=== PATIENT | female | born 2000 | race Two or more races ===

== ENCOUNTER → 2020-09-15 14:47 | Outpatient (BNVA) | payer MEDICAID, SELFPAY | PROVIDERS: PCP Nurse Practitioner Family; Visit Provider Internal Medicine | DX: I95.0 Idiopathic hypotension (principal) | CPT/HCPCS: 93005; 99202 ==

== ENCOUNTER 2020-10-07 07:37 | Emergency (ER) | payer MEDICAID, SELFPAY ==
[2020-10-07 07:43] VITALS: BP 108/65; PULSE 76; RESP 12; TEMP 36.6; O2SAT 98; BMI 22.4
[2020-10-07] MEDS: Lidocaine HCl 1 % 20 ML VIAL 10 ML INFILTRATI (08:16)
--- NOTE | 2020-10-07 08:23 | ED_ITS ---
HPI - Wound/Laceration General Chief Complaint: Wound/Laceration Stated Complaint: FINGER CUT WITH SCISSORS Time Seen by Provider: 10/07/20 08:02 Source: patient Mode of arrival: EMS Limitations: no limitations History of Present Illness HPI narrative: 20-year-old female who presents emergency department for evaluation of a laceration to her left index finger. The patient was opening a package with a pair scissors, she slipped and accidentally cut her left index finger. She states that the finger was bleeding extensively. She called an ambulance. The wound was cleaned and dressed in the field patient was t ransported to the emergency department. The patient believes that her tetanus status is up-to-date. She denies any numbness or weakness of the finger. Related Data Home Medications Medication Instructions Recorded Confirmed cholecalciferol (vitamin D3) 25 25 mcg PO DAILY 09/15/20 09/15/20 mcg (1,000 unit) capsule Allergies Allergy/AdvReac Type Severity Reaction Status Date / Time FRUIT Allergy Unknown ANGIOEDEMA Uncoded 09/15/20 14:54 Review of Systems Review of Systems: Yes all other systems are reviewed and are negative PMFSH Past Medical History Surgical History No pertinent past surgical history Family History Family History Father No problems noted. Mother No problems noted. Social History Social History Alcohol intake: never Smoking Status: Never smoker Advance Directives: No Advance Directives Information Provided: Yes Physical Exam Vital Signs: Vital Signs: Last Vital Signs Temp 98 F 10/07/20 07:43 Pulse 76 10/07/20 07:43 Resp 12 10/07/20 07:43 BP 108/65 10/07/20 07:43 Pulse Ox 98 10/07/20 07:43 Body Mass Index 22.4 Const: General: cooperative and in distress Nutritional Appearance: well nourished Orientation/consciousness: oriented to person Limitations: no limitations Neuro: General: oriented to person Extrem: Left upper extremity: hand (1.5 cm laceration to left the radial aspect of the finger, full skin thickn) Details: neurosensory exam normal and other Psych: Appearance: grossly normal Mental Status: mental status grossly normal Speech and movement: Normal speech and movement present Attitude: cooperative Thought process: Normal thought process present Course Course Course Narrative: 20-year-old female who presents emergency department for evaluation of a 1.5 cm full skin thickness laceration to the left index finger along the radial lateral aspect of the finger just above the PIP joint, finger is neurovascularly intact with normal strength and normal light touch sensation. Laceration was repaired with 4.0 nylon sutures x3 sutures. The patient tolerated the procedure well. She was given verbal and printed instructions and discharged home Procedures Laceration Left index finger: Site: hand (Index finger) Side (If applicable): left Size (cm): 1.5 Description: linear and other (Full skin thickness) Depth: simple, single layer Local Anesthetic: lidocaine 1% Amount of anesthesia used (mL): 3 Pre-repair: wound explored Skin layer closed with: nylon Size (cm): 4-0 Number of sutures: 3 Technique: simple, interrupted Discharge Plan Discharge Clinical Impression: Laceration Patient Disposition: Home, Self-Care Instructions: Finger Laceration (ED) Additional Instructions: Apply bacitracin twice a day for 1 week Watch for signs of infection which would include redness, swelling, drainage or pus, red streaks/lines going away from the wound, increased pain or fever. The stitches need to be removed in 7-10 days by your doctor. Call your doctor's office to make sure that your tetanus status is up-to-date, if you have not had a tetanus shot within 10 years then you should get a booster shot. Follow-up with your doctor in 2 days. Please return to the emergency department if your symptoms get worse or if you develop any symptoms that are concerning to you. Prescriptions: No Action cholecalciferol (vitamin D3) 25 mcg (1,000 unit) capsule 25 mcg PO DAILY RF: 0
== END 2020-10-07 08:47 | disposition home or self-care (01) ==
PROVIDERS: Emergency Provider Emergency Medicine Emergency Medical Services; PCP Nurse Practitioner Family
DX: S61.211A Laceration without foreign body of left index finger without damage to nail, initial encounter (principal); M79.642 Pain in left hand; W26.9XXA Contact with unspecified sharp object(s), initial encounter; Y93.9 Activity, unspecified; Y92.009 Unspecified place in unspecified non-institutional (private) residence as the place of occurrence of the external cause; Y99.9 Unspecified external cause status
CPT/HCPCS: 12001; 99283; 99284

== ENCOUNTER 2021-06-30 08:00 | Outpatient (RCR) | payer MEDICAID, SELFPAY | END 2021-07-07 07:55 | disposition home or self-care (01) | LOC: HO.PT 08:00 | PROVIDERS: PCP Internal Medicine; Visit Provider Internal Medicine | DX: M41.9 Scoliosis, unspecified (principal) | CPT/HCPCS: 97110; 97140; 97162; 97530 ==

== ENCOUNTER 2022-01-07 19:44 | Emergency (ER) | payer MEDICAID, SELFPAY ==
--- NOTE | ~2022-01-07 | XR_ITS ---
EXAMINATION: XR CHEST CLINICAL INFORMATION: Syncope. COMPARISON: None available. TECHNIQUE: 2 views of the chest were obtained. FINDINGS: No significant abnormality is noted involving the heart, lungs, mediastinum, bony thorax or soft tissues. XR/XR chest 2V IMPRESSION: Unremarkable examination.
--- NOTE | ~2022-01-07 | CT_ITS ---
EXAMINATION: CT HEAD WITHOUT CONTRAST CLINICAL INFORMATION: Syncope COMPARISON: None TECHNIQUE: Contiguous axial imaging was performed from the skull base to vertex without intravenous administration of contrast. This CT examination was performed using dose optimization techniques as appropriate, variously including the following: *Automated exposure control *Adjustment of mA and/or kV according to patient size (this includes techniques or standardized protocols for targeted exams where dose is matched to indication/reason for exam; i.e. extremities or head) *Use of iterative reconstruction technique DLP: 576 mGy-cm FINDINGS: There is no evidence of acute intracranial hemorrhage or territorial infarction. No abnormal mass effect or midline shift is seen. Heart to white matter differentiation is well preserved. No extra-axial fluid collections are identified. The ventricles are normal in size. There is no abnormal attenuation within the brain parenchyma. The osseous structures and soft tissues are normal. The mastoid air cells and visualized portions of the paranasal sinuses are well aerated. CT/CT head/brain wo con IMPRESSION: No acute intracranial pathology.
[2022-01-07 20:00] VITALS: BP 73/27; PULSE 71; RESP 18; TEMP 36.1; O2SAT 98; BMI 23.6
--- NOTE | 2022-01-07 20:24 | ECG_ITS ---
Test Reason : NEAR SYNCOPE/LOW BP Blood Pressure : / mmHG Vent. Rate : 095 BPM Atrial Rate : 095 BPM P-R Int : 256 ms QRS Dur : 074 ms QT Int : 336 ms P-R-T Axes : -02 -34 -12 degrees QTc Int : 422 ms Sinus rhythm with 1st degree A-V block Left axis deviation Minimal voltage criteria for LVH, may be normal variant ( R in aVL ) Abnormal ECG No previous ECGs available Referred By: Sybil Christie Electronically Signed By:TORO MCCARTHY MD
--- NOTE | 2022-01-07 20:24 | ED.GENADULT ---
HPI - General Adult General Chief complaint: Syncope <RITO Tuttle - Last Filed: 01/07/22 21:03> Stated complaint: low BP, passed out <RITO Tuttle - Last Filed: 01/07/22 21:03> Time Seen by Provider: 01/07/22 20:24 <RITO Tuttle - Last Filed: 01/07/22 21:03> Source: patient <RITO Tuttle - Last Filed: 01/07/22 21:03> Mode of arrival: ambulatory <RITO Tuttle - Last Filed: 01/07/22 21:03> Limitations: no limitations <RITO Tuttle - Last Filed: 01/07/22 21:03> History of Present Illness HPI narrative: Patient is a 21 year old female presenting to the emergency department today with lightheadedness and low blood pressure. Patient states that she has a history of low blood pressure but doesn''t usually feel like she is going to pass out. Patient states she woke up this morning feeling like she had a cold but felt otherwise fine. Patient denies any dizziness, abdominal pain, nausea, vomiting, fever, chills, blurry vision, double vision, loss of vision, chest pain, difficulty breathing, shortness of breath, back pain, night sweats, pain with urination, increased urinary frequency, increased urinary urgency, blood in her urine or stool, recent trauma or falls, bowel incontinence, bladder incontinence, bowel retention, bladder retention, or any other complaints at this time. Patient states that she is not sexually active and could not possible be . <RITO Tuttle - Last Filed: 01/07/22 21:03> Onset (ago): minute(s) <RITO Tuttle - Last Filed: 01/07/22 21:03> Treatments prior to arrival: none <RITO Tuttle Last Filed: 01/07/22 21:03> Related Data Home medications: Home Medications Medication Instructions Recorded Confirmed cholecalciferol (vitamin D3) 25 25 mcg PO DAILY 09/15/20 09/15/20 mcg (1,000 unit) capsule <RITO Tuttle Last Filed: 01/07/22 21:03> Allergies/adverse reactions: Allergies Allergy/AdvReac Type Severity Reaction Status Date / Time FRUIT Allergy Unknown ANGIOEDEMA Uncoded 09/15/20 14:54 <RITO Tuttle - Last Filed: 01/07/22 21:03> Review of Systems Constitutional: Constitutional: Reports no additional constitutional complaints, Denies chills, Denies fever(s) and Denies night sweats <RITO Tuttle - Last Filed: 01/07/22 21:03> Eyes: Eyes: Reports no additional eye complaints, Denies blurry vision, Denies change in vision, Denies diplopia, Denies eye discharge, Denies loss of vision and Denies eye pain <RITO Tuttle - Last Filed: 01/07/22 21:03> ENT: Denies dizziness <RITO Tuttle - Last Filed: 01/07/22 21:03> Cardiovascular: Cardiovascular: Reports no additional cardiovascular complaints, Denies chest pain, Denies lightheadedness, Denies Loss of Consciousness and Denies dyspnea <RITO Tuttle - Last Filed: 01/07/22 21:03> Respiratory: Respiratory: Reports no additional respiratory complaints and Denies dyspnea <RITO Tuttle - Last Filed: 01/07/22 21:03> Gastrointestinal: Gastrointestinal: Reports no additional gastrointestinal complaints, Denies abdominal pain, Denies melena, Denies hematochezia, Denies change in bowel habits and Denies change in stool character <RITO Tuttle - Last Filed: 01/07/22 21:03> Genitourinary: Genitourinary: Denies hematuria, Denies urinary frequency, Denies dysuria, Denies urinary incontinence, Denies urinary hesitancy and Denies urinary urgency <RITO Tuttle - Last Filed: 01/07/22 21:03> Musculoskeletal: Musculoskeletal: Reports no additional musculoskeletal complaints, Denies numbness and Denies tingling <RITO Tuttle - Last Filed: 01/07/22 21:03> Neurologic: Denies dizziness, Denies loss of vision, Denies numbness and Denies tingling <RITO Tuttle - Last Filed: 01/07/22 21:03> Comments: lightheadedness <RITO Tuttle - Last Filed: 01/07/22 21:03> Psychiatric: Psychiatric: Reports no additional psychiatric complaints <RITO Tuttle - Last Filed: 01/07/22 21:03> Endocrine: Endocrine: Reports no additional endocrine complaints <RITO Tuttle - Last Filed: 01/07/22 21:03> Hematologic/Lymphatic: Hematologic/Lymphatic: Reports no additional hematologic/lymphatic complaints <RITO Tuttle - Last Filed: 01/07/22 21:03> Allergic/Immunologic: Allergic/Immunologic: Reports no additional allergic/immunologic complaints <RITO Tuttle - Last Filed: 01/07/22 21:03> [facility] Past Medical History Attestation statement: The following information was validated with the patient. <RITO Tuttle - Last Filed: 01/07/22 21:03> Source: old records reviewed <RITO Tuttle - Last Filed: 01/07/22 21:03> Surgical History: Surgical History No pertinent past surgical history <RITO Tuttle - Last Filed: 01/07/22 21:03> Family History Family History: Family History Father No problems noted. Mother No problems noted. <RITO Tuttle - Last Filed: 01/07/22 21:03> Social History Social History: Social History Alcohol intake: never Advance Directives: No Advance Directives Information Provided: Yes <RITO Tuttle - Last Filed: 01/07/22 21:03> Physical Exam ED Vital Signs: Vital Signs - 24 hr 01/07/22 20:00 01/07/22 21:42 01/07/22 21:43 Temperature 97.0 F 98.1 F Pulse Rate 71 98 96 Respiratory Rate 18 17 Blood Pressure 73/27 L 112/63 107/57 L Pulse Oximetry 98 99 01/07/22 21:44 01/07/22 21:46 Temperature Pulse Rate 102 H 103 H Respiratory Rate Blood Pressure 128/80 119/75 Pulse Oximetry BMI result Body Mass Index 23.6 <RITO Tuttle - Last Filed: 01/07/22 21:03> Const General: cooperative, no acute distress, alert and awake <Sybil Christie PA - Last Filed: 01/07/22 21:03> Nutritional Appearance: well nourished <Sybil Christie PA - Last Filed: 01/07/22 21:03> Orientation/consciousness: patient oriented x3 <Sybil Christie PA - Last Filed: 01/07/22 21:03> Limitations: no limitations <Sybil Christie PA - Last Filed: 01/07/22 21:03> HENMT Head: Yes normal to inspection and Yes atraumatic <Sybil Christie PA - Last Filed: 01/07/22 21:03> Ears: hearing grossly normal bilaterally and external ears normal <Sybil Christie PA - Last Filed: 01/07/22 21:03> General nose exam: Normal external nose present, no nasal discharge noted and no epistaxis <Sybil Christie PA - Last Filed: 01/07/22 21:03> Face and sinus: Yes normal facial exam, No abrasion and No laceration <Sybil Christie PA - Last Filed: 01/07/22 21:03> Mouth: Normal oral and palatal mucosa present, no drooling and no muffled voice <Sybil Christie PA - Last Filed: 01/07/22 21:03> Eyes General: appearance normal, both eyes and all related structures <Sybil Christie PA - Last Filed: 01/07/22 21:03> Periorbital: periorbital findings normal <Sybil Christie PA - Last Filed: 01/07/22 21:03> Eyelids: Yes eyelids normal <Sybil Christie PA - Last Filed: 01/07/22 21:03> Conjunctivae: conjunctivae normal <Sybil Christie PA - Last Filed: 01/07/22 21:03> Pupils: Equal, round and reactive pupils present <Sybil Christie PA - Last Filed: 01/07/22 21:03> EOM: EOMs intact bilaterally <Sybil Christie PA - Last Filed: 01/07/22 21:03> Neck Neck: Yes normal visual inspection, Yes full ROM and Yes no lymphadenopathy <Sybil Christie PA - Last Filed: 01/07/22 21:03> Chest Chest palpation & inspection: normal inspection of the chest <Sybil RITO Christie - Last Filed: 01/07/22 21:03> Resp Effort & Inspection: normal respiratory effort and able to speak in complete sentences <Sybil Bacaambika PA - Last Filed: 01/07/22 21:03> Auscultation: clear to auscultation bilaterally <Sybil Christie PA - Last Filed: 01/07/22 21:03> Cardio Rate: regular rate <Sybiltrinidad Bacaambika PA - Last Filed: 01/07/22 21:03> Rhythm: regular rhythm <Sybil RITO Christie - Last Filed: 01/07/22 21:03> GI Inspection: Yes normal to inspection <Sybil RITO Christie - Last Filed: 01/07/22 21:03> Neuro General: patient oriented x3 and moves all extremities <RITO Tuttle - Last Filed: 01/07/22 21:03> Cranial nerves: Yes Equal, round and reactive pupils present <Sybiltrinidad Bacaambika PA - Last Filed: 01/07/22 21:03> Cognition (Neuro): normal cognition <Sybil RITO Christie - Last Filed: 01/07/22 21:03> Motor exam (neuro): 5/5 motor strength present throughout <Sybiltrinidad Bacaambika PA - Last Filed: 01/07/22 21:03> Sensory Exam: Normal double simultaneous stimulation for sensation <RITO Tuttle - Last Filed: 01/07/22 21:03> Coordination: [id number] test normal <Sybil Christie PA - Last Filed: 01/07/22 21:03> Extrem General: Yes normal to inspection, Yes full ROM and Yes capillary refill normal <RITO Tuttle - Last Filed: 01/07/22 21:03> Psych Appearance: grossly normal <RITO Tuttle - Last Filed: 01/07/22 21:03> Mental Status: mental status grossly normal <RITO Tuttle - Last Filed: 01/07/22 21:03> Affect: normal affect <RITO Tuttle - Last Filed: 01/07/22 21:03> Attitude: cooperative <RITO Tuttle - Last Filed: 01/07/22 21:03> Thought process: Normal thought process present <RITO Tuttle Last Filed: 01/07/22 21:03> Thought content: Normal thought content present <RITO Tuttle Last Filed: 01/07/22 21:03> Insight: Good insight present (Psych) <RITO Tuttle Last Filed: 01/07/22 21:03> Medical Decision Making MDM Narrative Medical decision making narrative: Patient is a 21 year old female presenting to the emergency department today with lightheadedness. Patient's physical exam was unremarkable. Patient's blood work is pending at this time. Patient's urine is pending at this time. Patient's EKG was unremarkable. Patient's chest x-ray and head CT are both pending at this time. Patient's rapid influenza test was positive. Patient received IV fluids while in the department. Patient's disposition is pending imaging and the remaining aspects of her work up. Patient signed out to SHERIDAN Goldman <RITO Tuttle - Last Filed: 01/07/22 21:03> Differential Diagnosis Differential Diagnosis: history of hypotension, syncope, influenza <RITO Tuttle - Last Filed: 01/07/22 21:03> Medical Records Medical records reviewed: Yes I reviewed the patient's medical records. <RITO Tuttle Last Filed: 01/07/22 21:03> Lab Data Lab results reviewed: Yes I reviewed the patient's lab results. <RITO Tuttle - Last Filed: 01/07/22 21:03> Result diagrams: : 01/07/22 20:14 01/07/22 20:14 <RITO Tuttle - Last Filed: 01/07/22 21:03> Labs: Lab Results 01/07/22 01/07/22 01/07/22 Range/Units 20:14 20:14 20:33 WBC 8.5 (4.8-10.8) X10*3/uL RBC 4.33 (4.20-5.50) X10*6/uL Hgb 13.1 (12.0-16.0) g/dl Hct 39.9 (37.0-47.0) % MCV 92.1 (80.0-98.0) fL MCH 30.3 (27.0-33.0) pg MCHC 32.8 (31.0-35.0) g/dl RDW 11.8 (11.0-16.0) % Plt Count 254 (160-400) X10*3/uL MPV 9.1 L (9.4-12.3) fL Immature Gran % (Auto) 0.2 (0.0-0.4) % Neut % (Auto) 92.6 H (45-73) % Lymph % (Auto) 3.5 L (20-40) % [place] % (Auto) 3.4 (2-11) % Eos % (Auto) 0.2 (0-4) % Baso % (Auto) 0.1 (0-2) % Lymph # (Auto) 0.3 L (1.2-4.9) X10*3/uL [place] # (Auto) 0.3 (0.1-1.2) X10*3/uL Eos # (Auto) 0.0 (0.0-0.4) X10*3/uL Baso # (Auto) 0.0 (0.0-0.2) X10*3/uL Abs Immat Gran (auto) 0.02 (0.00-0.03) X10*3/uL Absolute Neuts (auto) 7.8 (2.0-8.3) x10*3/uL Absolute Nucleated RBC 0.000 (0.0-0.012) X10*3/uL Nucleated RBC % (auto) 0.0 (0.0-0.2) /100WBC Smear Tech's Comments VERIFIED D-Dimer High Sensitivty < 150 NG/ML Sodium 137 (135-145) mmol/L Potassium 4.1 (3.3-5.1) mmol/L Chloride 102 (96-108) mmol/L Carbon Dioxide 28 (22-29) mmol/L Anion Gap 11 L (12-20) BUN 9 (9-16) mg/dL Creatinine 0.91 (0.5-1.4) mg/dL Estim Creat Clear Calc 73.1 Estimated GFR > 60 Random Glucose 120 H (60-115) mg/dL Calcium 9.8 (8.4-10.2) mg/dL Magnesium (1.6-2.6) mg/dL Total Bilirubin 0.4 (0.0-1.0) mg/dL AST 20 (5-31) U/L ALT 18 (0-31) U/L Alkaline Phosphatase 72 (39-117) U/L Total Protein 7.9 (6.5-8.0) g/dL Albumin 4.5 (3.5-5.0) g/dL Beta HCG, Quant < 2 mIU/mL Urine Color Urine Appearance Urine pH (5.0-8.0) Ur Specific Walters (1.005-1.025) Urine Protein (NEG-TRACE) MG/DL Urine Glucose (UA) (NEG) MG/DL Urine Ketones (NEG) MG/DL Urine Blood (NEG) Urine Nitrite (NEG) Ur Leukocyte Esterase (NEG) COVID-19 (JOSE) (Negative) COVID-19 Clin Com Influenza Type A (ELLA) (Negative) Influenza Type B (ELLA) (Negative) Influenza A & B Note 01/07/22 01/07/22 01/07/22 Range/Units 20:33 20:33 20:33 WBC (4.8-10.8) X10*3/uL RBC (4.20-5.50) X10*6/uL Hgb (12.0-16.0) g/dl Hct (37.0-47.0) % MCV (80.0-98.0) fL MCH (27.0-33.0) pg MCHC (31.0-35.0) g/dl RDW (11.0-16.0) % Plt Count (160-400) X10*3/uL MPV (9.4-12.3) fL Immature Gran % (Auto) (0.0-0.4) % Neut % (Auto) (45-73) % Lymph % (Auto) (20-40) % [place] % (Auto) (2-11) % Eos % (Auto) (0-4) % Baso % (Auto) (0-2) % Lymph # (Auto) (1.2-4.9) X10*3/uL [place] # (Auto) (0.1-1.2) X10*3/uL Eos # (Auto) (0.0-0.4) X10*3/uL Baso # (Auto) (0.0-0.2) X10*3/uL Abs Immat Gran (auto) (0.00-0.03) X10*3/uL Absolute Neuts (auto) (2.0-8.3) x10*3/uL Absolute Nucleated RBC (0.0-0.012) X10*3/uL Nucleated RBC % (auto) (0.0-0.2) /100WBC Smear Tech's Comments D-Dimer High Sensitivty NG/ML Sodium (135-145) mmol/L Potassium (3.3-5.1) mmol/L Chloride (96-108) mmol/L Carbon Dioxide (22-29) mmol/L Anion Gap (12-20) BUN (9-16) mg/dL Creatinine (0.5-1.4) mg/dL Estim Creat Clear Calc Estimated GFR Random Glucose (60-115) mg/dL Calcium (8.4-10.2) mg/dL Magnesium 1.7 (1.6-2.6) mg/dL Total Bilirubin (0.0-1.0) mg/dL AST (5-31) U/L ALT (0-31) U/L Alkaline Phosphatase (39-117) U/L Total Protein (6.5-8.0) g/dL Albumin (3.5-5.0) g/dL Beta HCG, Quant mIU/mL Urine Color Urine Appearance Urine pH (5.0-8.0) Ur Specific Walters (1.005-1.025) Urine Protein (NEG-TRACE) MG/DL Urine Glucose (UA) (NEG) MG/DL Urine Ketones (NEG) MG/DL Urine Blood (NEG) Urine Nitrite (NEG) Ur Leukocyte Esterase (NEG) COVID-19 (JOSE) Negative (Negative) COVID-19 Clin Com See Note Influenza Type A (ELLA) Positive A (Negative) Influenza Type B (ELLA) Negative (Negative) Influenza A & B Note See Note 01/07/22 Range/Units 22:14 WBC (4.8-10.8) X10*3/uL RBC (4.20-5.50) X10*6/uL Hgb (12.0-16.0) g/dl Hct (37.0-47.0) % MCV (80.0-98.0) fL MCH (27.0-33.0) pg MCHC (31.0-35.0) g/dl RDW (11.0-16.0) % Plt Count (160-400) X10*3/uL MPV (9.4-12.3) fL Immature Gran % (Auto) (0.0-0.4) % Neut % (Auto) (45-73) % Lymph % (Auto) (20-40) % [place] % (Auto) (2-11) % Eos % (Auto) (0-4) % Baso % (Auto) (0-2) % Lymph # (Auto) (1.2-4.9) X10*3/uL [place] # (Auto) (0.1-1.2) X10*3/uL Eos # (Auto) (0.0-0.4) X10*3/uL Baso # (Auto) (0.0-0.2) X10*3/uL Abs Immat Gran (auto) (0.00-0.03) X10*3/uL Absolute Neuts (auto) (2.0-8.3) x10*3/uL Absolute Nucleated RBC (0.0-0.012) X10*3/uL Nucleated RBC % (auto) (0.0-0.2) /100WBC Smear Tech's Comments D-Dimer High Sensitivty NG/ML Sodium (135-145) mmol/L Potassium (3.3-5.1) mmol/L Chloride (96-108) mmol/L Carbon Dioxide (22-29) mmol/L Anion Gap (12-20) BUN (9-16) mg/dL Creatinine (0.5-1.4) mg/dL Estim Creat Clear Calc Estimated GFR Random Glucose (60-115) mg/dL Calcium (8.4-10.2) mg/dL Magnesium (1.6-2.6) mg/dL Total Bilirubin (0.0-1.0) mg/dL AST (5-31) U/L ALT (0-31) U/L Alkaline Phosphatase (39-117) U/L Total Protein (6.5-8.0) g/dL Albumin (3.5-5.0) g/dL Beta HCG, Quant mIU/mL Urine Color YELLOW Urine Appearance CLEAR Urine pH 7.0 (5.0-8.0) Ur Specific [place] 1.020 (1.005-1.025) Urine Protein TRACE (NEG-TRACE) MG/DL Urine Glucose (UA) NEG (NEG) MG/DL Urine Ketones NEG (NEG) MG/DL Urine Blood NEG (NEG) Urine Nitrite NEG (NEG) Ur Leukocyte Esterase NEG (NEG) COVID-19 (JOSE) (Negative) COVID-19 Clin Com Influenza Type A (ELLA) (Negative) Influenza Type B (ELLA) (Negative) Influenza A & B Note <RITO Tuttle - Last Filed: 01/07/22 21:03> ECG Data Attestation: I personally reviewed and interpreted this ECG as follows: <RITO Tuttle - Last Filed: 01/07/22 21:03> Prior ECG tracings: not available for review <RITO Tuttle - Last Filed: 01/07/22 21:03> Interpretation: Vent. Rate: 095 BPM ? ? Atrial Rate: 095 BPM P-R Int: 256 ms? QRS Dur: 074 ms QT Int: 336 ms ? ? ? P-R-T Axes: -02 -34 -12 degrees QTc Int: 422 ms ? Sinus rhythm with 1st degree A-V block Left axis deviation Minimal voltage criteria for LVH, may be normal variant ( R in aVL ) Abnormal ECG No previous ECGs available DD/ 20 <RITO Tuttle - Last Filed: 01/07/22 21:03> Discharge Plan Discharge Clinical Impression: Idiopathic hypotension, Vasovagal syncope, Influenza A <RITO Tuttle - Last Filed: 01/07/22 21:03> Patient Disposition: Still a Patient <RITO Tuttle - Last Filed: 01/07/22 21:03> Instructions: Influenza (DC), Hypotension (ED) <RITO Tuttle Last Filed: 01/07/22 21:03> Prescriptions: No Action cholecalciferol (vitamin D3) 25 mcg (1,000 unit) capsule 25 mcg PO DAILY 0RF <RITO Tuttle - Last Filed: 01/07/22 21:03> Referrals: [facility] [Primary Care Provider] - <RITO Tuttle - Last Filed: 01/07/22 21:03> Stand Alone Forms: Work/School Release <RITO Tuttle - Last Filed: 01/07/22 21:03> Print Language: Macedonian <RITO Tuttle - Last Filed: 01/07/22 21:03>
[2022-01-07 20:30] LABS: Basophils Percent Auto 0.1 % (0-2); Eosinophils Percent Auto 0.2 % (0-4); Hematocrit 39.9 % (37.0-47.0); Hemoglobin 13.1 g/dl (12.0-16.0); Imm Gran Abs Auto 0.02 X10*3/uL (0.00-0.03); Imm Gran Pct Auto 0.2 % (0.0-0.4); Lymphocytes Absolute Auto 0.3 X10*3/uL (1.2-4.9); Lymphocytes Percent Auto 3.5 % (20-40); MANUAL DIFF FLAG SCAN; Mean Corpuscular HGB Conc 32.8 g/dl (31.0-35.0); Mean Corpuscular Hemoglobin 30.3 pg (27.0-33.0); Mean Corpuscular Volume 92.1 fL (80.0-98.0); Mean Platelet Volume 9.1 fL (9.4-12.3); Monocytes Absolute Auto 0.3 X10*3/uL (0.1-1.2); Monocytes Percent Auto 3.4 % (2-11); Neutrophils Absolute Auto 7.8 x10*3/uL (2.0-8.3); Neutrophils Percent Auto 92.6 % (45-73); Platelet Count 254 X10*3/uL (160-400); Red Blood Count 4.33 X10*6/uL (4.20-5.50); Red Cell Distribution Width 11.8 % (11.0-16.0); SCAN SMEAR FLAG 1; White Blood Count 8.5 X10*3/uL (4.8-10.8)
[2022-01-07 20:42] LABS: Alanine Aminotransferase 18 U/L (0-31); Albumin Level 4.5 g/dL (3.5-5.0); Alkaline Phosphatase 72 U/L (39-117); Anion Gap 11 (12-20); Aspartate Amino Transferase 20 U/L (5-31); Bilirubin Total 0.4 mg/dL (0.0-1.0); Blood Urea Nitrogen 9 mg/dL (9-16); Calcium 9.8 mg/dL (8.4-10.2); Carbon Dioxide 28 mmol/L (22-29); Chloride 102 mmol/L (96-108); Creatinine Clr Calc Pharmacy 73.1; Estimated Glomerular Filt Rate > 60; Glucose Random 120 mg/dL (60-115); Potassium 4.1 mmol/L (3.3-5.1); Sodium 137 mmol/L (135-145); Total Protein 7.9 g/dL (6.5-8.0)
[2022-01-07 20:56] LABS: Magnesium 1.7 mg/dL (1.6-2.6)
[2022-01-07 20:58] LABS: COVID-19 Test Negative (Negative); IDNOW Serial# 16C4AD1C; Influenza A Positive (Negative); Influenza B2 Negative (Negative)
--- NOTE | 2022-01-07 20:58 | PC.NURSE ---
EKG COMPLETED AT 2020 WAS REPEATED DUE TO LEAD ERROR
[2022-01-07 21:02] LABS: SLIDE REVIEW VERIFIED
[2022-01-07 21:04] LABS: D Dimer High Sensitivity < 150 NG/ML
[2022-01-07 21:42] VITALS: BP 112/63; PULSE 98; RESP 17; TEMP 36.7; O2SAT 99
[2022-01-07 21:43] VITALS: BP 107/57; PULSE 96
[2022-01-07 21:44] VITALS: BP 128/80; PULSE 102
[2022-01-07 21:44] LABS: HCG Quantitative < 2 mIU/mL
[2022-01-07 21:46] VITALS: BP 119/75; PULSE 103
[2022-01-07 22:30] LABS: Appearance Urine CLEAR; Color Urine YELLOW; Glucose Urine UA NEG (NEG); Leukocyte Esterase Urine NEG (NEG); Nitrite Urine NEG (NEG); Urine Blood NEG (NEG); Urine Ketones NEG (NEG); Urine Protein TRACE MG/DL (NEG-TRACE)
[2022-01-07 22:34] LABS: UPreg QC Valid YES; Urine Pregnancy NEGATIVE (NEGATIVE)
[2022-01-07 23:09] LABS: Bacteria Urine 1+ /LPF; RBC Urine 0 /HPF (0); Squamous Epithelial Cell Urine TRACE /LPF; WBC Urine 0-2 /HPF (0-4)
== END 2022-01-07 23:21 | disposition home or self-care (01) ==
PROVIDERS: Physician Assistant Medical; Emergency Provider Emergency Medicine Emergency Medical Services
DX: J10.1 Influenza due to other identified influenza virus with other respiratory manifestations (principal); I95.0 Idiopathic hypotension; R55 Syncope and collapse; Z20.822 Contact with and (suspected) exposure to COVID-19; Z79.899 Other long term (current) drug therapy
CPT/HCPCS: 36415; 70450; 71046; 80053; 81001; 81025; 83735; 84702; 85025; 85379; 87502; 87635; 93005; 99284

== ENCOUNTER → 2022-05-19 08:10 | Outpatient (BNVA) | payer MEDICAID, SELFPAY | PROVIDERS: PCP Internal Medicine; Visit Provider Nurse Practitioner Family | DX: R10.11 Right upper quadrant pain (principal); K62.5 Hemorrhage of anus and rectum; K21.9 Gastro-esophageal reflux disease without esophagitis; K59.00 Constipation, unspecified; K64.9 Unspecified hemorrhoids | CPT/HCPCS: 99202; 99212 ==

== ENCOUNTER 2022-05-20 09:13 | Outpatient (REF) | payer MEDICAID, SELFPAY ==
[2022-05-20 10:51] LABS: TSH reflex Free T4 2.34 uIU/mL (0.32-4.0)
[2022-05-24 12:47] LABS: Transglutaminase IgA <1.0 U/mL
== END 2022-05-20 09:14 | disposition home or self-care (01) ==
LOC: HO.LAB 09:13
PROVIDERS: PCP Internal Medicine; Visit Provider Nurse Practitioner Family
DX: R10.9 Unspecified abdominal pain (principal); Z12.11 Encounter for screening for malignant neoplasm of colon
CPT/HCPCS: 36415; 84443; 86364

== ENCOUNTER 2022-06-01 09:22 | Outpatient (REF) | payer MEDICAID, SELFPAY ==
--- NOTE | ~2022-06-01 | US_ITS ---
EXAMINATION: US ABDOMEN COMPLETE CLINICAL INFORMATION: Unspecified abdominal pain. COMPARISON: None TECHNIQUE: Real-time imaging of the abdominal viscera. FINDINGS: PANCREAS: Visualized portions of the pancreas are unremarkable. The pancreatic tail is obscured by bowel gas. ABDOMINAL AORTA: Visualized aorta is normal in caliber however portions are obscured by bowel gas. INFERIOR VENA CAVA: Visualized portions are normal. LIVER: Normal. The liver is normal in size. The liver contour is normal. Parenchymal echogenicity is normal. No focal hepatic lesion. There is no intrahepatic biliary duct dilatation seen. GALLBLADDER: Normal. The gallbladder is physiologically distended without evidence of stones, sludge, polyps, wall thickening or pericholecystic fluid. COMMON BILE DUCT: Normal in caliber measuring 0.3 cm in diameter. RIGHT KIDNEY: Right renal pelviectasis without renzo hydronephrosis. No hydronephrosis. No renal calculi or focal parenchymal lesions. The kidney measures 9.5 cm in maximum dimension. LEFT KIDNEY: Left renal pelviectasis without renzo hydronephrosis. No hydronephrosis. No renal calculi or focal parenchymal lesions. The kidney measures 10.1 cm in maximum dimension. SPLEEN: Normal. The spleen measures 9.7 cm in maximum dimension. FREE FLUID: None. US/US abdomen complete IMPRESSION: Bilateral renal pelviectasis without renzo hydronephrosis. Portions of the pancreas and aorta were obscured by bowel gas limiting evaluation.
== END 2022-06-01 09:23 | disposition home or self-care (01) ==
LOC: HO.US 09:22
PROVIDERS: Visit Provider Nurse Practitioner Family
DX: R10.11 Right upper quadrant pain (principal)
CPT/HCPCS: 76700

== ENCOUNTER 2022-06-02 15:39 | Outpatient (REF) | payer MEDICAID, SELFPAY ==
[2022-06-03 09:07] LABS: H Pylori Breath Test Negative (Negative)
== END 2022-06-02 15:40 | disposition home or self-care (01) ==
LOC: HO.LNP 15:39
PROVIDERS: Visit Provider Nurse Practitioner Family
DX: Z11.0 Encounter for screening for intestinal infectious diseases (principal)
CPT/HCPCS: 83013

== ENCOUNTER → 2022-06-21 08:36 | Outpatient (BNVA) | payer MEDICAID, SELFPAY | PROVIDERS: PCP Internal Medicine; Referring Provider Internal Medicine; Visit Provider Nurse Practitioner Family | DX: R10.12 Left upper quadrant pain (principal); K21.9 Gastro-esophageal reflux disease without esophagitis; K62.5 Hemorrhage of anus and rectum | CPT/HCPCS: 99212 ==

== ENCOUNTER 2022-10-18 14:18 | Outpatient (REF) | payer MEDICAID, SELFPAY ==
[2022-10-18 15:46] LABS: Lipase 21 U/L (8-78)
== END 2022-10-18 14:19 | disposition home or self-care (01) ==
LOC: HO.LAB 14:18
PROVIDERS: PCP Internal Medicine; Visit Provider Nurse Practitioner Family
DX: R10.9 Unspecified abdominal pain (principal)
CPT/HCPCS: 36415; 83690

== ENCOUNTER → 2022-10-31 13:08 | Outpatient (BNVA) | payer MEDICAID, SELFPAY | PROVIDERS: PCP Internal Medicine; Visit Provider Nurse Practitioner Family | DX: K21.9 Gastro-esophageal reflux disease without esophagitis (principal); K59.01 Slow transit constipation; R10.84 Generalized abdominal pain | CPT/HCPCS: 99212 ==

== ENCOUNTER 2023-01-24 12:32 | Emergency (ER) | payer MEDICAID, SELFPAY ==
[2023-01-24] VITALS (7 sets, daily range): BP systolic 111–123; BP diastolic 71–91; PULSE 74–96; RESP 15–18; TEMP 36.3–36.7; O2SAT 96–100; BMI 23.2
--- NOTE | ~2023-01-24 | XR_ITS ---
EXAMINATION: XR CHEST CLINICAL INFORMATION: Cough. COMPARISON: None available. TECHNIQUE: 2 views of the chest were obtained. FINDINGS: No significant abnormality is noted involving the heart, lungs, mediastinum, bony thorax or soft tissues. XR/XR chest 2V IMPRESSION: Unremarkable chest examination.
--- NOTE | 2023-01-24 12:46 | ED_ITS ---
HPI - Syncope General Chief Complaint: Syncope <RITO Camargo - Last Filed: 01/24/23 12:59> Stated Complaint: Syncopal episode per EMS <RITO Camargo - Last Filed: 01/24/23 12:59> Time Seen by Provider: 01/24/23 17:47 <RITO Camargo - Last Filed: 01/24/23 12:59> Source: patient, RN notes reviewed and old records reviewed <Jh Lyons - Last Filed: 01/24/23 19:40> Mode of arrival: ambulatory <Jh Lyons - Last Filed: 01/24/23 19:40> Limitations: no limitations <Jh Lyons - Last Filed: 01/24/23 19:40> History of Present Illness HPI narrative: 22-year-old female reports a past medical history significant for hypotension, asthma presents for evaluation of a syncopal episode patient reports that just prior to arrival she was sitting at her desk at work when she tried to stand up she states that she got lightheaded and had cold sweats and then I passed out. This was witnessed by other staff members the patient woke up immediately but reportedly had another syncopal episode shortly thereafter there was no seizure-like activity described the patient reports that she has some shortness of breath associated with asthma but denies any chest pain she states that she had fever and cough 5 days ago over the weekend but that resolved the patient states that she has seen cardiology in the past for her hypotension but has never had an echocardiogram or stress test. <Jh Lyons - Last Filed: 01/24/23 19:40> Related Data Home Medications: Home Medications Medication Instructions Recorded Confirmed cholecalciferol (vitamin D3) 25 25 mcg PO DAILY 09/15/20 09/15/20 mcg (1,000 unit) capsule albuterol sulfate 90 mcg/actuation 2 puff inhalation QID 05/19/22 aerosol inhaler (ProAir HFA) epinephrine 0.3 mg/0.3 mL 0.3 ml IM ONCE PRN anaphylaxis 05/19/22 injection, auto-injector Previous Rx's Medication Instructions Recorded docusate sodium 100 mg capsule 100 mg PO BEDTIME #90 caps 05/19/22 hydrocortisone 2.5 % topical cream 1 appl NC BID-QID PRN hemorrhoids 05/19/22 with perineal applicator #30 grams (Anusol-HC) polyethylene glycol 3350 17 17 g PO DAILY #510 grams 10/31/22 gram/dose oral powder (Miralax) <RITO Camargo - Last Filed: 01/24/23 12:59> Allergies/Adverse Reactions: Allergies Allergy/AdvReac Type Severity Reaction Status Date / Time No Known Drug Allergies Allergy Unknown Unknown Verified 10/31/22 13:32 FRUIT Allergy Unknown ANGIOEDEMA Uncoded 10/31/22 13:32 <RITO Camargo - Last Filed: 01/24/23 12:59> Review of Systems Constitutional: Constitutional: Reports as per HPI, Denies chills, Denies fatigue, Denies fever(s) and Denies headache(s) <Jh Lyons - Last Filed: 01/24/23 19:40> ENT: Denies headache(s) <Jh Lyons - Last Filed: 01/24/23 19:40> Cardiovascular: Cardiovascular: Denies chest pain, Reports syncope and Reports dyspnea <Jh Lyons - Last Filed: 01/24/23 19:40> Respiratory: Respiratory: Denies cough and Reports dyspnea <Jhpierce Connollyy - Last Filed: 01/24/23 19:40> Gastrointestinal: Gastrointestinal: Denies abdominal pain, Denies constipation and Denies vomiting <Jh Lyons - Last Filed: 01/24/23 19:40> Genitourinary: Genitourinary: Denies dysuria <Jh Lyons - Last Filed: 01/24/23 19:40> Neurologic: Reports syncope, Denies headache(s) and Denies focal weakness <Jh Lyons - Last Filed: 01/24/23 19:40> Endocrine: Endocrine: Denies fatigue <Jh Connollyy - Last Filed: 01/24/23 19:40> PMFSH Past Medical History Surgical History: Surgical History No pertinent past surgical history <RITO Camargo - Last Filed: 01/24/23 12:59> Family History Family History: Family History Father No problems noted. Mother No problems noted. <RITO Camargo - Last Filed: 01/24/23 12:59> Social History Social History: Social History Alcohol intake: never Smoked in Last 30 Days: No Advance Directives: No Advance Directives Information Provided: Yes Patient : No <RITO Camargo - Last Filed: 01/24/23 12:59> Physical Exam Vital Signs: Vital Signs: Last Vital Signs Temp 97.4 F 01/24/23 18:02 Pulse 81 01/24/23 19:18 Resp 15 01/24/23 19:18 BP 118/79 01/24/23 19:18 Pulse Ox 98 01/24/23 19:18 O2 Del Method Room Air 01/24/23 19:18 BMI result Body Mass Index 23.2 <RITO Camargo - Last Filed: 01/24/23 12:59> Vital Signs: Last Vital Signs Temp 97.4 F 01/24/23 18:02 Pulse 81 01/24/23 19:18 Resp 15 01/24/23 19:18 BP 118/79 01/24/23 19:18 Pulse Ox 98 01/24/23 19:18 O2 Del Method Room Air 01/24/23 19:18 BMI result Body Mass Index 23.2 <Jh Lyons - Last Filed: 01/24/23 19:40> Const: General: healthy appearing, comfortable, no acute distress, alert and awake <Jh Lyons - Last Filed: 01/24/23 19:40> Nutritional Appearance: well nourished <Jh Lyons - Last Filed: 01/24/23 19:40> Orientation/consciousness: patient oriented x3 <Jh Lyons - Last Filed: 01/24/23 19:40> HEENT: Head: Yes normocephalic and Yes atraumatic <Jh Lyons - Last Filed: 01/24/23 19:40> Eyes: Pupils: Equal, round and reactive pupils present <Jh Lyons - Last Filed: 01/24/23 19:40> EOM: EOMs intact bilaterally < Last Filed: 01/24/23 19:40> Neck: Neck: Yes full ROM < Last Filed: 01/24/23 19:40> Resp: Effort & Inspection: normal respiratory effort, able to speak in complete sentences, no audible wheezes and not labored < Last Filed: 01/24/23 19:40> Auscultation: clear to auscultation bilaterally < Last Filed: 01/24/23 19:40> Cardio: Rate: regular rate < Last Filed: 01/24/23 19:40> Rhythm: regular rhythm < Filed: 01/24/23 19:40> GI: Inspection: No distended < Last Filed: 01/24/23 19:40> Palpation (GI): Soft to palpation, not firm, nontender, no guarding and not rigid < Last Filed: 01/24/23 19:40> Auscultation: normoactive bowel sounds < Last Filed: 01/24/23 19:40> Skin: General skin exam: no rashes or lesions noted and elasticity normal < Last Filed: 01/24/23 19:40> Neuro: General: patient oriented x3 <Jh Walter Last Filed: 01/24/23 19:40> Cranial nerves: Yes Equal, round and reactive pupils present and Yes Bilaterally intact EOM present < Last Filed: 01/24/23 19:40> Cognition (Neuro): normal cognition < Last Filed: 01/24/23 19:40> Course Course Course Narrative: RME - 22 yo female with history of asthma, hx hypotension and syncope in the past presents to the ER for evaluation of syncope and collapse that happened at work this morning. She was at her desk was feeling sweaty and shakey, when she stoof up she syncopized and fell. Brief LOC 5 seconds or less. No head injury. She has been feeling sick with a cough, cold sweats, nasal congestion for the last 5-6 days. COVID negative at home. She reports adequate PO intake while feeling unwell. Plan: labs, COVID test, CXR and EKG, orthostatics <RITO Camargo - Last Filed: 01/24/23 12:59> Medical Decision Making Medical Decision Making [facility] Narrative: 22-year-old female presents for evaluation after a syncopal episode at work. She reports that happened after she stood up, could been orthostatic issue, will check orthostatic vital signs. Patient reports having had fevers and cough last week that is resolved, chest x-ray is clear, no pneumonia. patient's chest x-ray is a sinus rhythm without ectopy. patient does have some diffuse ST elevation that could be early repolarization. there are no reciprocal ST depressions. However will add on Troponin, CPK, ESR, CRP to evaluate for pericarditis. Patient structure was normal, labs were reassuring. Patient reports that she flew to [place] 2 months ago, she is not on control noted D-dimer to help rule out PE <Jh Lyons - Last Filed: 01/24/23 19:40> Differential Diagnosis syncope Arrhythmia ACS Pericarditis Orthostasis Hypertension Viral syndrome <Jh Lyons - Last Filed: 01/24/23 19:40> Lab Data [facility] Lab Attestation statement: I reviewed the patient's lab results. <Jh Lyons - Last Filed: 01/24/23 19:40> Result Diagrams: 01/24/23 13:29 01/24/23 13:29 <RITO Camargo - Last Filed: 01/24/23 12:59> Labs: Lab Results 01/24/23 01/24/23 01/24/23 Range/Units 13:29 13:29 13:29 WBC 7.1 (4.8-10.8) X10*3/uL RBC 4.40 (4.20-5.50) X10*6/uL Hgb 13.3 (12.0-16.0) g/dl Hct 41.2 (37.0-47.0) % MCV 93.6 (80.0-98.0) fL MCH 30.2 (27.0-33.0) pg MCHC 32.3 (31.0-35.0) g/dl RDW 11.7 (11.0-16.0) % Plt Count 296 (160-400) X10*3/uL MPV 8.7 L (9.4-12.3) fL Immature Gran % (Auto) 0.3 (0.0-0.4) % Neut % (Auto) 58.9 (45-73) % Lymph % (Auto) 24.9 (20-40) % Republic % (Auto) 4.9 (2-11) % Eos % (Auto) 10.4 H (0-4) % Baso % (Auto) 0.6 (0-2) % Lymph # (Auto) 1.8 (1.2-4.9) X10*3/uL [place] # (Auto) 0.4 (0.1-1.2) X10*3/uL Eos # (Auto) 0.7 H (0.0-0.4) X10*3/uL Baso # (Auto) 0.0 (0.0-0.2) X10*3/uL Abs Immat Gran (auto) 0.02 (0.00-0.03) X10*3/uL Absolute Neuts (auto) 4.2 (2.0-8.3) x10*3/uL Absolute Nucleated RBC 0.000 (0.0-0.012) X10*3/uL Nucleated RBC % (auto) 0.0 (0.0-0.2) /100WBC ESR (0-20) MM/HR D-Dimer High Sensitivty NG/ML Sodium 139 (135-145) mmol/L Potassium 4.1 (3.3-5.1) mmol/L Chloride 102 (96-108) mmol/L Carbon Dioxide 29 (22-29) mmol/L Anion Gap 12 (12-20) BUN 10 (9-16) mg/dL Creatinine 0.71 (0.5-1.4) mg/dL Estim Creat Clear Calc 97.4 Estimated GFR > 60 POC Glucose (60-115) mg/dL Random Glucose 90 (60-115) mg/dL Calcium 10.3 H (8.4-10.2) mg/dL Magnesium 1.8 (1.6-2.6) mg/dL Total Bilirubin 0.3 (0.0-1.0) mg/dL Direct Bilirubin 0.1 (0.0-0.5) mg/dL AST 23 (5-31) U/L ALT 25 (0-31) U/L Alkaline Phosphatase 71 (39-117) U/L Total Creatine Kinase 89 (26-140) U/L Troponin I High Sens (<3.5-17.0) ng/L C-Reactive Protein 0.38 (< or = 0.50) mg/dL Total Protein 8.1 H (6.5-8.0) g/dL Albumin 4.7 (3.5-5.0) g/dL Urine Color Urine Appearance Urine pH (5.0-9.0) Ur Specific [place] (1.005-1.025) Urine Protein (Neg-Trace) mg/dL Urine Glucose (UA) (Negative) mg/dL Urine Ketones (Negative) mg/dL Urine Blood (Negative) Urine Nitrite (Negative) Ur Leukocyte Esterase (Negative) Urine Test (NEGATIVE) Urine Opiates Screen (Not Detect) Urine Fentanyl Screen (Not Detect) Ur Barbiturates Screen (Not Detect) Ur Phencyclidine Scrn (Not Detect) Ur Amphetamines Screen (Not Detect) U Benzodiazepines Scrn (Not Detect) Urine Cocaine Screen (Not Detect) U Marijuana (THC) Screen (Not Detect) Ethyl Alcohol < 10 mg/dL COVID-19 (JOSE) Negative (Negative) COVID-19 Clin Com See Note 01/24/23 01/24/23 01/24/23 Range/Units 13:29 13:29 13:29 WBC (4.8-10.8) X10*3/uL RBC (4.20-5.50) X10*6/uL Hgb (12.0-16.0) g/dl Hct (37.0-47.0) % MCV (80.0-98.0) fL MCH (27.0-33.0) pg MCHC (31.0-35.0) g/dl RDW (11.0-16.0) % Plt Count (160-400) X10*3/uL MPV (9.4-12.3) fL Immature Gran % (Auto) (0.0-0.4) % Neut % (Auto) (45-73) % Lymph % (Auto) (20-40) % Republic % (Auto) (2-11) % Eos % (Auto) (0-4) % Baso % (Auto) (0-2) % Lymph # (Auto) (1.2-4.9) X10*3/uL [place] # (Auto) (0.1-1.2) X10*3/uL Eos # (Auto) (0.0-0.4) X10*3/uL Baso # (Auto) (0.0-0.2) X10*3/uL Abs Immat Gran (auto) (0.00-0.03) X10*3/uL Absolute Neuts (auto) (2.0-8.3) x10*3/uL Absolute Nucleated RBC (0.0-0.012) X10*3/uL Nucleated RBC % (auto) (0.0-0.2) /100WBC ESR (0-20) MM/HR D-Dimer High Sensitivty NG/ML Sodium (135-145) mmol/L Potassium (3.3-5.1) mmol/L Chloride (96-108) mmol/L Carbon Dioxide (22-29) mmol/L Anion Gap (12-20) BUN (9-16) mg/dL Creatinine (0.5-1.4) mg/dL Estim Creat Clear Calc Estimated GFR POC Glucose (60-115) mg/dL Random Glucose (60-115) mg/dL Calcium (8.4-10.2) mg/dL Magnesium (1.6-2.6) mg/dL Total Bilirubin (0.0-1.0) mg/dL Direct Bilirubin (0.0-0.5) mg/dL AST (5-31) U/L ALT (0-31) U/L Alkaline Phosphatase (39-117) U/L Total Creatine Kinase (26-140) U/L Troponin I High Sens (<3.5-17.0) ng/L C-Reactive Protein (< or = 0.50) mg/dL Total Protein (6.5-8.0) g/dL Albumin (3.5-5.0) g/dL Urine Color Yellow Urine Appearance Clear Urine pH 6.5 (5.0-9.0) Ur Specific [place] 1.010 (1.005-1.025) Urine Protein Negative (Neg-Trace) mg/dL Urine Glucose (UA) Negative (Negative) mg/dL Urine Ketones Negative (Negative) mg/dL Urine Blood Negative (Negative) Urine Nitrite Negative (Negative) Ur Leukocyte Esterase Negative (Negative) Urine Test NEGATIVE (NEGATIVE) Urine Opiates Screen Not Detected (Not Detect) Urine Fentanyl Screen Not Detected (Not Detect) Ur Barbiturates Screen Not Detected (Not Detect) Ur Phencyclidine Scrn Not Detected (Not Detect) Ur Amphetamines Screen Not Detected (Not Detect) U Benzodiazepines Scrn Not Detected (Not Detect) Urine Cocaine Screen Not Detected (Not Detect) U Marijuana (THC) Screen Not Detected (Not Detect) Ethyl Alcohol mg/dL COVID-19 (JOSE) (Negative) COVID-19 Clin Com 01/24/23 01/24/23 01/24/23 Range/Units 13:29 13:29 18:42 WBC (4.8-10.8) X10*3/uL RBC (4.20-5.50) X10*6/uL Hgb (12.0-16.0) g/dl Hct (37.0-47.0) % MCV (80.0-98.0) fL MCH (27.0-33.0) pg MCHC (31.0-35.0) g/dl RDW (11.0-16.0) % Plt Count (160-400) X10*3/uL MPV (9.4-12.3) fL Immature Gran % (Auto) (0.0-0.4) % Neut % (Auto) (45-73) % Lymph % (Auto) (20-40) % Republic % (Auto) (2-11) % Eos % (Auto) (0-4) % Baso % (Auto) (0-2) % Lymph # (Auto) (1.2-4.9) X10*3/uL Republic # (Auto) (0.1-1.2) X10*3/uL Eos # (Auto) (0.0-0.4) X10*3/uL Baso # (Auto) (0.0-0.2) X10*3/uL Abs Immat Gran (auto) (0.00-0.03) X10*3/uL Absolute Neuts (auto) (2.0-8.3) x10*3/uL Absolute Nucleated RBC (0.0-0.012) X10*3/uL Nucleated RBC % (auto) (0.0-0.2) /100WBC ESR 27 H (0-20) MM/HR D-Dimer High Sensitivty NG/ML Sodium (135-145) mmol/L Potassium (3.3-5.1) mmol/L Chloride (96-108) mmol/L Carbon Dioxide (22-29) mmol/L Anion Gap (12-20) BUN (9-16) mg/dL Creatinine (0.5-1.4) mg/dL Estim Creat Clear Calc Estimated GFR POC Glucose (60-115) mg/dL Random Glucose (60-115) mg/dL Calcium (8.4-10.2) mg/dL Magnesium (1.6-2.6) mg/dL Total Bilirubin (0.0-1.0) mg/dL Direct Bilirubin (0.0-0.5) mg/dL AST (5-31) U/L ALT (0-31) U/L Alkaline Phosphatase (39-117) U/L Total Creatine Kinase Cancelled (26-140) U/L Troponin I High Sens < 2.7 (<3.5-17.0) ng/L C-Reactive Protein (< or = 0.50) mg/dL Total Protein (6.5-8.0) g/dL Albumin (3.5-5.0) g/dL Urine Color Urine Appearance Urine pH (5.0-9.0) Ur Specific [place] (1.005-1.025) Urine Protein (Neg-Trace) mg/dL Urine Glucose (UA) (Negative) mg/dL Urine Ketones (Negative) mg/dL Urine Blood (Negative) Urine Nitrite (Negative) Ur Leukocyte Esterase (Negative) Urine Test (NEGATIVE) Urine Opiates Screen (Not Detect) Urine Fentanyl Screen (Not Detect) Ur Barbiturates Screen (Not Detect) Ur Phencyclidine Scrn (Not Detect) Ur Amphetamines Screen (Not Detect) U Benzodiazepines Scrn (Not Detect) Urine Cocaine Screen (Not Detect) U Marijuana (THC) Screen (Not Detect) Ethyl Alcohol mg/dL COVID-19 (JOSE) (Negative) COVID-19 Clin Com 01/24/23 01/24/23 Range/Units 18:42 19:21 WBC (4.8-10.8) X10*3/uL RBC (4.20-5.50) X10*6/uL Hgb (12.0-16.0) g/dl Hct (37.0-47.0) % MCV (80.0-98.0) fL MCH (27.0-33.0) pg MCHC (31.0-35.0) g/dl RDW (11.0-16.0) % Plt Count (160-400) X10*3/uL MPV (9.4-12.3) fL Immature Gran % (Auto) (0.0-0.4) % Neut % (Auto) (45-73) % Lymph % (Auto) (20-40) % Republic % (Auto) (2-11) % Eos % (Auto) (0-4) % Baso % (Auto) (0-2) % Lymph # (Auto) (1.2-4.9) X10*3/uL Republic # (Auto) (0.1-1.2) X10*3/uL Eos # (Auto) (0.0-0.4) X10*3/uL Baso # (Auto) (0.0-0.2) X10*3/uL Abs Immat Gran (auto) (0.00-0.03) X10*3/uL Absolute Neuts (auto) (2.0-8.3) x10*3/uL Absolute Nucleated RBC (0.0-0.012) X10*3/uL Nucleated RBC % (auto) (0.0-0.2) /100WBC ESR (0-20) MM/HR D-Dimer High Sensitivty < 150 NG/ML Sodium (135-145) mmol/L Potassium (3.3-5.1) mmol/L Chloride (96-108) mmol/L Carbon Dioxide (22-29) mmol/L Anion Gap (12-20) BUN (9-16) mg/dL Creatinine (0.5-1.4) mg/dL Estim Creat Clear Calc Estimated GFR POC Glucose 84 (60-115) mg/dL Random Glucose (60-115) mg/dL Calcium (8.4-10.2) mg/dL Magnesium (1.6-2.6) mg/dL Total Bilirubin (0.0-1.0) mg/dL Direct Bilirubin (0.0-0.5) mg/dL AST (5-31) U/L ALT (0-31) U/L Alkaline Phosphatase (39-117) U/L Total Creatine Kinase (26-140) U/L Troponin I High Sens (<3.5-17.0) ng/L C-Reactive Protein (< or = 0.50) mg/dL Total Protein (6.5-8.0) g/dL Albumin (3.5-5.0) g/dL Urine Color Urine Appearance Urine pH (5.0-9.0) Ur Specific [place] (1.005-1.025) Urine Protein (Neg-Trace) mg/dL Urine Glucose (UA) (Negative) mg/dL Urine Ketones (Negative) mg/dL Urine Blood (Negative) Urine Nitrite (Negative) Ur Leukocyte Esterase (Negative) Urine Test (NEGATIVE) Urine Opiates Screen (Not Detect) Urine Fentanyl Screen (Not Detect) Ur Barbiturates Screen (Not Detect) Ur Phencyclidine Scrn (Not Detect) Ur Amphetamines Screen (Not Detect) U Benzodiazepines Scrn (Not Detect) Urine Cocaine Screen (Not Detect) U Marijuana (THC) Screen (Not Detect) Ethyl Alcohol mg/dL COVID-19 (JOSE) (Negative) COVID-19 Clin Com <RITO Camargo - Last Filed: 01/24/23 12:59> Lab Results 01/24/23 01/24/23 01/24/23 Range/Units 13:29 13:29 13:29 WBC 7.1 (4.8-10.8) X10*3/uL RBC 4.40 (4.20-5.50) X10*6/uL Hgb 13.3 (12.0-16.0) g/dl Hct 41.2 (37.0-47.0) % MCV 93.6 (80.0-98.0) fL MCH 30.2 (27.0-33.0) pg MCHC 32.3 (31.0-35.0) g/dl RDW 11.7 (11.0-16.0) % Plt Count 296 (160-400) X10*3/uL MPV 8.7 L (9.4-12.3) fL Immature Gran % (Auto) 0.3 (0.0-0.4) % Neut % (Auto) 58.9 (45-73) % Lymph % (Auto) 24.9 (20-40) % Republic % (Auto) 4.9 (2-11) % Eos % (Auto) 10.4 H (0-4) % Baso % (Auto) 0.6 (0-2) % Lymph # (Auto) 1.8 (1.2-4.9) X10*3/uL Republic # (Auto) 0.4 (0.1-1.2) X10*3/uL Eos # (Auto) 0.7 H (0.0-0.4) X10*3/uL Baso # (Auto) 0.0 (0.0-0.2) X10*3/uL Abs Immat Gran (auto) 0.02 (0.00-0.03) X10*3/uL Absolute Neuts (auto) 4.2 (2.0-8.3) x10*3/uL Absolute Nucleated RBC 0.000 (0.0-0.012) X10*3/uL Nucleated RBC % (auto) 0.0 (0.0-0.2) /100WBC ESR (0-20) MM/HR D-Dimer High Sensitivty NG/ML Sodium 139 (135-145) mmol/L Potassium 4.1 (3.3-5.1) mmol/L Chloride 102 (96-108) mmol/L Carbon Dioxide 29 (22-29) mmol/L Anion Gap 12 (12-20) BUN 10 (9-16) mg/dL Creatinine 0.71 (0.5-1.4) mg/dL Estim Creat Clear Calc 97.4 Estimated GFR > 60 POC Glucose (60-115) mg/dL Random Glucose 90 (60-115) mg/dL Calcium 10.3 H (8.4-10.2) mg/dL Magnesium 1.8 (1.6-2.6) mg/dL Total Bilirubin 0.3 (0.0-1.0) mg/dL Direct Bilirubin 0.1 (0.0-0.5) mg/dL AST 23 (5-31) U/L ALT 25 (0-31) U/L Alkaline Phosphatase 71 (39-117) U/L Total Creatine Kinase 89 (26-140) U/L Troponin I High Sens (<3.5-17.0) ng/L C-Reactive Protein 0.38 (< or = 0.50) mg/dL Total Protein 8.1 H (6.5-8.0) g/dL Albumin 4.7 (3.5-5.0) g/dL Urine Color Urine Appearance Urine pH (5.0-9.0) Ur Specific [place] (1.005-1.025) Urine Protein (Neg-Trace) mg/dL Urine Glucose (UA) (Negative) mg/dL Urine Ketones (Negative) mg/dL Urine Blood (Negative) Urine Nitrite (Negative) Ur Leukocyte Esterase (Negative) Urine Test (NEGATIVE) Urine Opiates Screen (Not Detect) Urine Fentanyl Screen (Not Detect) Ur Barbiturates Screen (Not Detect) Ur Phencyclidine Scrn (Not Detect) Ur Amphetamines Screen (Not Detect) U Benzodiazepines Scrn (Not Detect) Urine Cocaine Screen (Not Detect) U Marijuana (THC) Screen (Not Detect) Ethyl Alcohol < 10 mg/dL COVID-19 (JOSE) Negative (Negative) COVID-19 Clin Com See Note 01/24/23 01/24/23 01/24/23 Range/Units 13:29 13:29 13:29 WBC (4.8-10.8) X10*3/uL RBC (4.20-5.50) X10*6/uL Hgb (12.0-16.0) g/dl Hct (37.0-47.0) % MCV (80.0-98.0) fL MCH (27.0-33.0) pg MCHC (31.0-35.0) g/dl RDW (11.0-16.0) % Plt Count (160-400) X10*3/uL MPV (9.4-12.3) fL Immature Gran % (Auto) (0.0-0.4) % Neut % (Auto) (45-73) % Lymph % (Auto) (20-40) % [place] % (Auto) (2-11) % Eos % (Auto) (0-4) % Baso % (Auto) (0-2) % Lymph # (Auto) (1.2-4.9) X10*3/uL [place] # (Auto) (0.1-1.2) X10*3/uL Eos # (Auto) (0.0-0.4) X10*3/uL Baso # (Auto) (0.0-0.2) X10*3/uL Abs Immat Gran (auto) (0.00-0.03) X10*3/uL Absolute Neuts (auto) (2.0-8.3) x10*3/uL Absolute Nucleated RBC (0.0-0.012) X10*3/uL Nucleated RBC % (auto) (0.0-0.2) /100WBC ESR (0-20) MM/HR D-Dimer High Sensitivty NG/ML Sodium (135-145) mmol/L Potassium (3.3-5.1) mmol/L Chloride (96-108) mmol/L Carbon Dioxide (22-29) mmol/L Anion Gap (12-20) BUN (9-16) mg/dL Creatinine (0.5-1.4) mg/dL Estim Creat Clear Calc Estimated GFR POC Glucose (60-115) mg/dL Random Glucose (60-115) mg/dL Calcium (8.4-10.2) mg/dL Magnesium (1.6-2.6) mg/dL Total Bilirubin (0.0-1.0) mg/dL Direct Bilirubin (0.0-0.5) mg/dL AST (5-31) U/L ALT (0-31) U/L Alkaline Phosphatase (39-117) U/L Total Creatine Kinase (26-140) U/L Troponin I High Sens (<3.5-17.0) ng/L C-Reactive Protein (< or = 0.50) mg/dL Total Protein (6.5-8.0) g/dL Albumin (3.5-5.0) g/dL Urine Color Yellow Urine Appearance Clear Urine pH 6.5 (5.0-9.0) Ur Specific [place] 1.010 (1.005-1.025) Urine Protein Negative (Neg-Trace) mg/dL Urine Glucose (UA) Negative (Negative) mg/dL Urine Ketones Negative (Negative) mg/dL Urine Blood Negative (Negative) Urine Nitrite Negative (Negative) Ur Leukocyte Esterase Negative (Negative) Urine Test NEGATIVE (NEGATIVE) Urine Opiates Screen Not Detected (Not Detect) Urine Fentanyl Screen Not Detected (Not Detect) Ur Barbiturates Screen Not Detected (Not Detect) Ur Phencyclidine Scrn Not Detected (Not Detect) Ur Amphetamines Screen Not Detected (Not Detect) U Benzodiazepines Scrn Not Detected (Not Detect) Urine Cocaine Screen Not Detected (Not Detect) U Marijuana (THC) Screen Not Detected (Not Detect) Ethyl Alcohol mg/dL COVID-19 (JOSE) (Negative) COVID-19 Clin Com 01/24/23 01/24/23 01/24/23 Range/Units 13:29 13:29 18:42 WBC (4.8-10.8) X10*3/uL RBC (4.20-5.50) X10*6/uL Hgb (12.0-16.0) g/dl Hct (37.0-47.0) % MCV (80.0-98.0) fL MCH (27.0-33.0) pg MCHC (31.0-35.0) g/dl RDW (11.0-16.0) % Plt Count (160-400) X10*3/uL MPV (9.4-12.3) fL Immature Gran % (Auto) (0.0-0.4) % Neut % (Auto) (45-73) % Lymph % (Auto) (20-40) % [place] % (Auto) (2-11) % Eos % (Auto) (0-4) % Baso % (Auto) (0-2) % Lymph # (Auto) (1.2-4.9) X10*3/uL [place] # (Auto) (0.1-1.2) X10*3/uL Eos # (Auto) (0.0-0.4) X10*3/uL Baso # (Auto) (0.0-0.2) X10*3/uL Abs Immat Gran (auto) (0.00-0.03) X10*3/uL Absolute Neuts (auto) (2.0-8.3) x10*3/uL Absolute Nucleated RBC (0.0-0.012) X10*3/uL Nucleated RBC % (auto) (0.0-0.2) /100WBC ESR 27 H (0-20) MM/HR D-Dimer High Sensitivty NG/ML Sodium (135-145) mmol/L Potassium (3.3-5.1) mmol/L Chloride (96-108) mmol/L Carbon Dioxide (22-29) mmol/L Anion Gap (12-20) BUN (9-16) mg/dL Creatinine (0.5-1.4) mg/dL Estim Creat Clear Calc Estimated GFR POC Glucose (60-115) mg/dL Random Glucose (60-115) mg/dL Calcium (8.4-10.2) mg/dL Magnesium (1.6-2.6) mg/dL Total Bilirubin (0.0-1.0) mg/dL Direct Bilirubin (0.0-0.5) mg/dL AST (5-31) U/L ALT (0-31) U/L Alkaline Phosphatase (39-117) U/L Total Creatine Kinase Cancelled (26-140) U/L Troponin I High Sens < 2.7 (<3.5-17.0) ng/L C-Reactive Protein (< or = 0.50) mg/dL Total Protein (6.5-8.0) g/dL Albumin (3.5-5.0) g/dL Urine Color Urine Appearance Urine pH (5.0-9.0) Ur Specific [place] (1.005-1.025) Urine Protein (Neg-Trace) mg/dL Urine Glucose (UA) (Negative) mg/dL Urine Ketones (Negative) mg/dL Urine Blood (Negative) Urine Nitrite (Negative) Ur Leukocyte Esterase (Negative) Urine Test (NEGATIVE) Urine Opiates Screen (Not Detect) Urine Fentanyl Screen (Not Detect) Ur Barbiturates Screen (Not Detect) Ur Phencyclidine Scrn (Not Detect) Ur Amphetamines Screen (Not Detect) U Benzodiazepines Scrn (Not Detect) Urine Cocaine Screen (Not Detect) U Marijuana (THC) Screen (Not Detect) Ethyl Alcohol mg/dL COVID-19 (JOSE) (Negative) COVID-19 Clin Com 01/24/23 01/24/23 Range/Units 18:42 19:21 WBC (4.8-10.8) X10*3/uL RBC (4.20-5.50) X10*6/uL Hgb (12.0-16.0) g/dl Hct (37.0-47.0) % MCV (80.0-98.0) fL MCH (27.0-33.0) pg MCHC (31.0-35.0) g/dl RDW (11.0-16.0) % Plt Count (160-400) X10*3/uL MPV (9.4-12.3) fL Immature Gran % (Auto) (0.0-0.4) % Neut % (Auto) (45-73) % Lymph % (Auto) (20-40) % [place] % (Auto) (2-11) % Eos % (Auto) (0-4) % Baso % (Auto) (0-2) % Lymph # (Auto) (1.2-4.9) X10*3/uL [place] # (Auto) (0.1-1.2) X10*3/uL Eos # (Auto) (0.0-0.4) X10*3/uL Baso # (Auto) (0.0-0.2) X10*3/uL Abs Immat Gran (auto) (0.00-0.03) X10*3/uL Absolute Neuts (auto) (2.0-8.3) x10*3/uL Absolute Nucleated RBC (0.0-0.012) X10*3/uL Nucleated RBC % (auto) (0.0-0.2) /100WBC ESR (0-20) MM/HR D-Dimer High Sensitivty < 150 NG/ML Sodium (135-145) mmol/L Potassium (3.3-5.1) mmol/L Chloride (96-108) mmol/L Carbon Dioxide (22-29) mmol/L Anion Gap (12-20) BUN (9-16) mg/dL Creatinine (0.5-1.4) mg/dL Estim Creat Clear Calc Estimated GFR POC Glucose 84 (60-115) mg/dL Random Glucose (60-115) mg/dL Calcium (8.4-10.2) mg/dL Magnesium (1.6-2.6) mg/dL Total Bilirubin (0.0-1.0) mg/dL Direct Bilirubin (0.0-0.5) mg/dL AST (5-31) U/L ALT (0-31) U/L Alkaline Phosphatase (39-117) U/L Total Creatine Kinase (26-140) U/L Troponin I High Sens (<3.5-17.0) ng/L C-Reactive Protein (< or = 0.50) mg/dL Total Protein (6.5-8.0) g/dL Albumin (3.5-5.0) g/dL Urine Color Urine Appearance Urine pH (5.0-9.0) Ur Specific [place] (1.005-1.025) Urine Protein (Neg-Trace) mg/dL Urine Glucose (UA) (Negative) mg/dL Urine Ketones (Negative) mg/dL Urine Blood (Negative) Urine Nitrite (Negative) Ur Leukocyte Esterase (Negative) Urine Test (NEGATIVE) Urine Opiates Screen (Not Detect) Urine Fentanyl Screen (Not Detect) Ur Barbiturates Screen (Not Detect) Ur Phencyclidine Scrn (Not Detect) Ur Amphetamines Screen (Not Detect) U Benzodiazepines Scrn (Not Detect) Urine Cocaine Screen (Not Detect) U Marijuana (THC) Screen (Not Detect) Ethyl Alcohol mg/dL COVID-19 (JOSE) (Negative) COVID-19 Clin Com <Jh Lyons - Last Filed: 01/24/23 19:40> Independent Interpretation I performed an independent interpretation of an: EKG ( sinus rhythm with a rate of 70 beats per minute. No ectopy.) and Plain X-Ray ( clear chest x-ray) <Jh Lyons - Last Filed: 01/24/23 19:40> Discharge Plan Discharge Clinical Impression: Syncope <RITO Camargo - Last Filed: 01/24/23 12:59> Patient Disposition: Home, Self-Care <RITO Camargo - Last Filed: 01/24/23 12:59> Instructions: Syncope (ED) <RITO Camargo - Last Filed: 01/24/23 12:59> Additional Instructions: your workup in the emergency depart today was reassuring. This includes your blood work, EKG, chest x-ray. I recommend that you follow-up with your [facility] for your continued syncopal episodes call tomorrow to schedule an appointment <RITO Camargo - Last Filed: 01/24/23 12:59> Prescriptions: No Action cholecalciferol (vitamin D3) 25 mcg (1,000 unit) capsule 25 mcg PO DAILY albuterol sulfate [ProAir HFA] 90 mcg/actuation HFA aerosol inhaler 2 puff inhalation QID epinephrine 0.3 mg/0.3 mL auto-injector 0.3 ml IM ONCE PRN (Reason: anaphylaxis) docusate sodium 100 mg capsule 100 mg PO BEDTIME Qty: 90 3RF hydrocortisone [Anusol-HC] 2.5 % cream with perineal applicator 1 appl [place] BID-QID PRN (Reason: hemorrhoids) Qty: 30 3RF Rx Instructions: use as directed polyethylene glycol 3350 [Miralax] 17 gram/dose powder 17 g PO DAILY Qty: 510 2RF <RITO Camagro - Last Filed: 01/24/23 12:59>
--- NOTE | 2023-01-24 12:48 | ECG_ITS ---
Test Reason : syncope Blood Pressure : / mmHG Vent. Rate : 070 BPM Atrial Rate : 070 BPM P-R Int : 194 ms QRS Dur : 084 ms QT Int : 366 ms P-R-T Axes : 053 089 060 degrees QTc Int : 395 ms Normal sinus rhythm Normal ECG When compared with ECG of 07-JAN-2022 20:21, [place] interval has decreased QRS axis Shifted right ST elevation now present in Inferior leads ST no longer elevated in Lateral leads T wave inversion no longer evident in Inferior leads Referred By: Tracy Baez Electronically Signed By:KYE SNYDER
[2023-01-24 13:35] LABS: MANUAL DIFF FLAG NO
[2023-01-24 13:38] LABS: Appearance Urine Clear; Color Urine Yellow; Glucose Urine UA Negative (Negative); Leukocyte Esterase Urine Negative (Negative); Nitrite Urine Negative (Negative); PH 6.5 (5.0-9.0); Urine Blood Negative (Negative); Urine Ketones Negative (Negative); Urine Protein Negative (Neg-Trace)
[2023-01-24 13:39] LABS: Basophils Percent Auto 0.6 % (0-2); Eosinophils Absolute Auto 0.7 X10*3/uL (0.0-0.4); Eosinophils Percent Auto 10.4 % (0-4); Hematocrit 41.2 % (37.0-47.0); Hemoglobin 13.3 g/dl (12.0-16.0); Imm Gran Abs Auto 0.02 X10*3/uL (0.00-0.03); Imm Gran Pct Auto 0.3 % (0.0-0.4); Lymphocytes Absolute Auto 1.8 X10*3/uL (1.2-4.9); Lymphocytes Percent Auto 24.9 % (20-40); Mean Corpuscular HGB Conc 32.3 g/dl (31.0-35.0); Mean Corpuscular Hemoglobin 30.2 pg (27.0-33.0); Mean Corpuscular Volume 93.6 fL (80.0-98.0); Mean Platelet Volume 8.7 fL (9.4-12.3); Monocytes Absolute Auto 0.4 X10*3/uL (0.1-1.2); Monocytes Percent Auto 4.9 % (2-11); Neutrophils Absolute Auto 4.2 x10*3/uL (2.0-8.3); Neutrophils Percent Auto 58.9 % (45-73); Platelet Count 296 X10*3/uL (160-400); Red Cell Distribution Width 11.7 % (11.0-16.0); UPreg QC Valid YES; Urine Pregnancy NEGATIVE (NEGATIVE); White Blood Count 7.1 X10*3/uL (4.8-10.8)
[2023-01-24 13:47] LABS: Amphetamine Screen Urine Not Detected (Not Detect); Barbiturates, Urine Not Detected (Not Detect); Benzodiazepines Screen Urine Not Detected (Not Detect); Cannabinoid Screen Urine Not Detected (Not Detect); Cocaine Screen Urine Not Detected (Not Detect); Fentanyl, urine Not Detected (Not Detect); Opiate Screen Urine Not Detected (Not Detect); Phencyclidine Screen Urine Not Detected (Not Detect)
[2023-01-24 13:53] LABS: COVID-19 Test Negative (Negative); IDNOW Serial# 08D9AD1C
[2023-01-24 14:00] LABS: Alanine Aminotransferase 25 U/L (0-31); Albumin Level 4.7 g/dL (3.5-5.0); Alkaline Phosphatase 71 U/L (39-117); Anion Gap 12 (12-20); Aspartate Amino Transferase 23 U/L (5-31); Bilirubin Direct 0.1 mg/dL (0.0-0.5); Bilirubin Total 0.3 mg/dL (0.0-1.0); Blood Urea Nitrogen 10 mg/dL (9-16); Calcium 10.3 mg/dL (8.4-10.2); Carbon Dioxide 29 mmol/L (22-29); Chloride 102 mmol/L (96-108); Creatinine Clr Calc Pharmacy 97.4; Estimated Glomerular Filt Rate > 60; Ethanol < 10 mg/dL; Glucose Random 90 mg/dL (60-115); Magnesium 1.8 mg/dL (1.6-2.6); Potassium 4.1 mmol/L (3.3-5.1); Sodium 139 mmol/L (135-145); Total Protein 8.1 g/dL (6.5-8.0)
--- NOTE | 2023-01-24 18:26 | PC.NURSE ---
Alert and oriented. Denies pain. Stated still with some lightheadedness and dizziness. Nasal congestion noted- stated x 2 days. NSR on monitor. VSS.
--- NOTE | 2023-01-24 19:00 | PC.NURSE ---
Report received by RN, Taylor Sutton about pt's present condition, the reason for the pt's arrival to the ED and what the care plan is in the ED and the treatments that were provided. Pt is resting in bed, denies any CP, SOB, numbness/tingling of extremities. Pt continues to be on cardiac montoring, displaying NSR, HR in the 70s. Pt is awaiting disposition.
[2023-01-24 19:07] LABS: C Reactive Protein 0.38 mg/dL (< or = 0.50)
[2023-01-24 19:12] LABS: D Dimer High Sensitivity < 150 NG/ML
[2023-01-24 19:17] LABS: Troponin-I High Sensitivity < 2.7 ng/L (<3.5-17.0)
[2023-01-24 19:26] LABS: Glucose, Whole Blood 84 mg/dL (60-115)
[2023-01-24 19:35] LABS: Erythrocyte Sedimentation Rate 27 MM/HR (0-20)
--- NOTE | 2023-01-24 19:52 | PC.NURSE ---
pt a&o, no sob or chest pain, reviewed discharge instruction with pt, pt verbalized understanding, no sign of distress upon discharge, pt ambulating with a steady gait. Notified NORA Montiel.
== END 2023-01-24 19:54 | disposition home or self-care (01) ==
PROVIDERS: Physician Assistant; Emergency Provider Internal Medicine
DX: R55 Syncope and collapse (principal); Z20.822 Contact with and (suspected) exposure to COVID-19; Z79.899 Other long term (current) drug therapy
CPT/HCPCS: 36415; 71046; 80048; 80076; 80307; 81003; 81025; 82550; 82947; 83735; 84484; 85025; 85379; 85652; 86140; 87635; 93005; 99283; 99285

== ENCOUNTER 2023-08-24 15:40 | Outpatient (REF) | payer OTHER, SELFPAY ==
[2023-08-24 18:19] LABS: MANUAL DIFF FLAG NO
[2023-08-24 18:21] LABS: Basophils Absolute Auto 0.1 X10*3/uL (0.0-0.2); Basophils Percent Auto 0.7 % (0-2); Eosinophils Absolute Auto 0.1 X10*3/uL (0.0-0.4); Eosinophils Percent Auto 2.1 % (0-4); Hematocrit 37.6 % (37.0-47.0); Hemoglobin 12.5 g/dl (12.0-16.0); Imm Gran Abs Auto 0.01 X10*3/uL (0.00-0.03); Imm Gran Pct Auto 0.1 % (0.0-0.4); Lymphocytes Absolute Auto 2.7 X10*3/uL (1.2-4.9); Lymphocytes Percent Auto 40.4 % (20-40); Mean Corpuscular HGB Conc 33.2 g/dl (31.0-35.0); Mean Corpuscular Volume 93.3 fL (80.0-98.0); Mean Platelet Volume 9.4 fL (9.4-12.3); Monocytes Absolute Auto 0.5 X10*3/uL (0.1-1.2); Monocytes Percent Auto 7.5 % (2-11); Neutrophils Absolute Auto 3.3 x10*3/uL (2.0-8.3); Neutrophils Percent Auto 49.2 % (45-73); Platelet Count 303 X10*3/uL (160-400); Red Blood Count 4.03 X10*6/uL (4.20-5.50); Red Cell Distribution Width 11.7 % (11.0-16.0); White Blood Count 6.7 X10*3/uL (4.8-10.8)
[2023-08-24 18:49] LABS: Alanine Aminotransferase 20 U/L (0-31); Albumin Level 4.5 g/dL (3.5-5.0); Alkaline Phosphatase 58 U/L (39-117); Anion Gap 12 (12-20); Aspartate Amino Transferase 20 U/L (5-31); Bilirubin Total 0.3 mg/dL (0.0-1.0); Blood Urea Nitrogen 13 mg/dL (9-16); Calcium 9.5 mg/dL (8.4-10.2); Carbon Dioxide 25 mmol/L (22-29); Chloride 107 mmol/L (96-108); Estimated Glomerular Filt Rate > 60; Glucose Random 81 mg/dL (60-115); Potassium 4.1 mmol/L (3.3-5.1); Sodium 140 mmol/L (135-145); Total Protein 8.1 g/dL (6.5-8.0)
[2023-08-24 19:06] LABS: TSH reflex Free T4 1.18 uIU/mL (0.32-4.0)
[2023-08-25 03:46] LABS: Estimated Average Glucose 111 mg/dL; Hemoglobin A1c % 5.5 % (<6.0)
== END 2023-08-24 15:41 | disposition home or self-care (01) ==
LOC: HO.HHCL 15:40
PROVIDERS: Visit Provider Nurse Practitioner Family
DX: R42 Dizziness and giddiness (principal); R63.4 Abnormal weight loss; Z86.69 Personal history of other diseases of the nervous system and sense organs
CPT/HCPCS: 36415; 80053; 83036; 84443; 85025

== ENCOUNTER 2024-01-17 23:03 | Emergency (ER) | payer OTHER, SELFPAY ==
--- NOTE | ~2024-01-17 | XR_ITS ---
EXAMINATION: XR CHEST CLINICAL INFORMATION: Shortness of breath, dyspnea COMPARISON: 01/24/2023 TECHNIQUE: Frontal view of the chest was obtained. FINDINGS: The lungs are clear with no focal consolidation. Mild central peribronchial thickening noted. No evidence of pneumothorax, pulmonary edema, or pleural effusions. The cardiomediastinal silhouette is unremarkable. No acute osseous findings. XR/XR chest 1V IMPRESSION: No focal consolidation. Mild central peribronchial thickening may reflect airways disease.
[2024-01-17 23:15] VITALS: BP 121/79; BP 130/68; PULSE 100; PULSE 114; RESP 16; O2SAT 100; BMI 22.2
--- NOTE | 2024-01-17 23:19 | ECG_ITS ---
Test Reason : SOB Blood Pressure : / mmHG Vent. Rate : 094 BPM Atrial Rate : 094 BPM P-R Int : 234 ms QRS Dur : 086 ms QT Int : 338 ms P-R-T Axes : 068 086 018 degrees QTc Int : 422 ms Sinus rhythm with 1st degree A-V block Nonspecific T wave abnormality Abnormal ECG When compared with ECG of 24-JAN-2023 13:19, Nonspecific T wave abnormality now evident in Anterolateral leads Referred By: Generic ED Physician Electronically Signed By:KYE SNYDER
[2024-01-17 23:35] LABS: MANUAL DIFF FLAG NO
[2024-01-17 23:36] LABS: Basophils Percent Auto 0.4 % (0-2); Eosinophils Absolute Auto 0.2 X10*3/uL (0.0-0.4); Eosinophils Percent Auto 2.1 % (0-4); Hematocrit 36.1 % (37.0-47.0); Hemoglobin 12.2 g/dl (12.0-16.0); Imm Gran Abs Auto 0.02 X10*3/uL (0.00-0.03); Imm Gran Pct Auto 0.3 % (0.0-0.4); Lymphocytes Absolute Auto 3.2 X10*3/uL (1.2-4.9); Lymphocytes Percent Auto 45.3 % (20-40); Mean Corpuscular HGB Conc 33.8 g/dl (31.0-35.0); Mean Corpuscular Hemoglobin 31.9 pg (27.0-33.0); Mean Corpuscular Volume 94.5 fL (80.0-98.0); Mean Platelet Volume 8.6 fL (9.4-12.3); Monocytes Absolute Auto 0.2 X10*3/uL (0.1-1.2); Monocytes Percent Auto 3.4 % (2-11); Neutrophils Absolute Auto 3.5 x10*3/uL (2.0-8.3); Neutrophils Percent Auto 48.5 % (45-73); Platelet Count 232 X10*3/uL (160-400); Red Blood Count 3.82 X10*6/uL (4.20-5.50); Red Cell Distribution Width 11.9 % (11.0-16.0); White Blood Count 7.2 X10*3/uL (4.8-10.8)
[2024-01-17 23:50] LABS: Anion Gap 17 (12-20); Blood Urea Nitrogen 9 mg/dL (9-16); Calcium 9.6 mg/dL (8.4-10.2); Carbon Dioxide 22 mmol/L (22-29); Chloride 105 mmol/L (96-108); Creatinine Clr Calc Pharmacy 86.1; Estimated Glomerular Filt Rate > 60; Glucose Random 182 mg/dL (60-115); Potassium 3.2 mmol/L (3.3-5.1); Sodium 141 mmol/L (135-145)
[2024-01-18 00:05] LABS: Troponin-I High Sensitivity < 2.7 ng/L (<3.5-17.0)
[2024-01-18 01:28] VITALS: BP 97/53; PULSE 98; RESP 15; TEMP 36.7; O2SAT 99
--- NOTE | 2024-01-18 02:07 | ED_ITS ---
HPI - SOB/Dyspnea General Chief Complaint: Dyspnea Stated Complaint: asthma exacerbation Time Seen by Provider: 01/18/24 01:56 Source: patient, family ( mother) and EMS Mode of arrival: EMS Limitations: no limitations History of Present Illness HPI Narrative: 23-year-old female history of seasonal asthma presented today with her mother for increased shortness of breath and wheezing patient tried albuterol home and nebulizer at home with no relief of shortness of breath mom called the ambulance , was given bronchodilator, Solu-Medrol, 2 g of magnesium and patient felt better on arrival to the ED, no fever, no chills, no coughing. Patient stated that usually carrot cause her to itch and she drank juice contain lot of carrot earlier today. patient was complaining of itching on her face but no voice change, no drooling, able to swallow her own saliva. Related Data Home Medications ?Medication ?Instructions ?Recorded ?Confirmed cholecalciferol (vitamin D3) 25 25 mcg PO DAILY 09/15/20 09/15/20 mcg (1,000 unit) capsule albuterol sulfate 90 mcg/actuation 2 puff inhalation QID 05/19/22 aerosol inhaler (ProAir HFA) epinephrine 0.3 mg/0.3 mL 0.3 ml IM ONCE PRN anaphylaxis 05/19/22 injection, auto-injector Previous Rx's ?Medication ?Instructions ?Recorded docusate sodium 100 mg capsule 100 mg PO BEDTIME #90 caps 05/19/22 hydrocortisone 2.5 % topical cream 1 appl [place] BID-QID PRN hemorrhoids 05/19/22 with perineal applicator #30 grams (Anusol-HC) polyethylene glycol 3350 17 17 g PO DAILY #510 grams 10/31/22 gram/dose oral powder (Miralax) Allergies Allergy/AdvReac Type Severity Reaction Status Date / Time No Known Drug Allergies Allergy Unknown Unknown Verified 10/31/22 13:32 FRUIT Allergy Unknown ANGIOEDEMA Uncoded 01/17/24 23:18 Review of Systems 2 Review of Systems: All other systems are reviewed and are negative Constitutional: Reports as per HPI and Reports no additional constitutional complaints Eyes: Reports as per HPI and Reports no additional eye complaints Reports system reviewed and no additional complaints, except as documented Cardiovascular: Reports as per HPI and Reports no additional cardiovascular complaints Respiratory: Reports as per HPI and Reports no additional respiratory complaints Gastrointestinal: Reports as per HPI and Reports no additional gastrointestinal complaints Genitourinary: Reports no additional female genitourinary complaints Musculoskeletal: Reports no additional musculoskeletal complaints Skin/Breast: Reports system reviewed and no additional complaints, except as docu Psychiatric: Reports no additional psychiatric complaints Endocrine: Reports no additional endocrine complaints Hematologic/Lymphatic: Reports no additional hematologic/lymphatic complaints Allergic/Immunologic: Reports no additional allergic/immunologic complaints Reports system reviewed and no additional complaints, except as documented and Reports Abnormal speech present [facility] Past Medical History Surgical History No pertinent past surgical history Family History Family History Father No problems noted. Mother No problems noted. Social History Social History Alcohol intake: never Smoked in Last 30 Days: No Use of substances other than those prescribed or required for medical reasons: No Advance Directives: No Advance Directives Information Provided: Yes Physical Exam 2 Vital Signs: Vital Signs: Last Vital Signs Temp 98.0 F 01/18/24 01:28 Pulse 98 01/18/24 01:28 Resp 15 01/18/24 01:28 BP 97/53 L 01/18/24 01:28 Pulse Ox 99 01/18/24 01:28 O2 Del Method Room Air 01/18/24 01:28 BMI result Body Mass Index 22.2 Vital signs have been reviewed and appear to be correct. Blood pressure elevated. Heart rate normal. Respiratory rate normal. Temperature normal. Oxygen saturation normal. Appearance: Alert. Oriented X3. No acute distress. Head: Normal external exam. Normocephalic. Atraumatic. No Leos signs noted. No raccoon eyes noted Eyes: PERRLA. EOMI. Conjunctiva and sclera normal. Eyelids normal. ENT: TM's Normal. Pharynx normal. Uvula midline. Moist mucous membranes. No trismus noted. No drooling noted. No muffled voice noted. Neck: Normal inspection. Neck supple. FROM. No adenopathy. Thyroid Normal. No meningeal signs. No neck mass noted. CVS: Normal heart rate and rhythm. Heart sound normal. No murmurs noted. Pulses normal throughout. Respiratory: No respiratory distress. Painless inspiration. Breath sounds normal. No wheezes/rales/rhonchi noted. Chest nontender. No accessory muscle usage noted or decreased air movement noted. Abdomen: Soft and nontender. Bowel sounds normal in all 4 quadrants. No distention noted. No organomegaly noted. No visible injury noted. Back: No CVA tenderness. Full range of motion noted. Skin: Skin warm and dry. Normal skin color. Normal skin turgor. No rashes/lesions/lacerations noted. Extremities: No lower extremity edema. Extremities exhibit normal range of motion. Extremities nontender. Neuro: Oriented X 3. Cranial nerve exam: II-XII are grossly intact No motor deficit. No sensory deficit. Reflexes normal. Course Reevaluation(s) Reevaluation #1: 23-year-old female with seasonal asthma responded well to EMS treatment. Hypokalemia will replete potassium in the ED. Hyperglycemia patient is nondiabetic could be stress reaction or prednisone administration patient was instructed to follow-up with PCP for close monitoring blood sugar and rule out DM. Time: 05:00 Medical Decision Making Differential Diagnosis Differential Diagnoses: The differential diagnosis associated with the presentation includes ( asthma exacerbation, pneumothorax, pneumonia, pleural effusion, electrolyte derangement, severe anemia , ACS.) Admission/Observation Consideration of admission/observation: Escalation of care including admission/observation considered Lab Data MDM Lab Attestation statement: I reviewed the patient's lab results. 01/17/24 23:32 01/17/24 23:32 Labs: Lab Results 01/17/24 Range/Units 23:32 WBC 7.2 (4.8-10.8) X10*3/uL RBC 3.82 L (4.20-5.50) X10*6/uL Hgb 12.2 (12.0-16.0) g/dl Hct 36.1 L (37.0-47.0) % MCV 94.5 (80.0-98.0) fL MCH 31.9 (27.0-33.0) pg MCHC 33.8 (31.0-35.0) g/dl RDW 11.9 (11.0-16.0) % Plt Count 232 (160-400) X10*3/uL MPV 8.6 L (9.4-12.3) fL Immature Gran % (Auto) 0.3 (0.0-0.4) % Neut % (Auto) 48.5 (45-73) % Lymph % (Auto) 45.3 H (20-40) % [place] % (Auto) 3.4 (2-11) % Eos % (Auto) 2.1 (0-4) % Baso % (Auto) 0.4 (0-2) % Lymph # (Auto) 3.2 (1.2-4.9) X10*3/uL [place] # (Auto) 0.2 (0.1-1.2) X10*3/uL Eos # (Auto) 0.2 (0.0-0.4) X10*3/uL Baso # (Auto) 0.0 (0.0-0.2) X10*3/uL Abs Immat Gran (auto) 0.02 (0.00-0.03) X10*3/uL Absolute Neuts (auto) 3.5 (2.0-8.3) x10*3/uL Absolute Nucleated RBC 0.000 (0.0-0.012) X10*3/uL Nucleated RBC % (auto) 0.0 (0.0-0.2) /100WBC Sodium 141 (135-145) mmol/L Potassium 3.2 L (3.3-5.1) mmol/L Chloride 105 (96-108) mmol/L Carbon Dioxide 22 (22-29) mmol/L Anion Gap 17 (12-20) BUN 9 (9-16) mg/dL Creatinine 0.76 (0.5-1.4) mg/dL Estim Creat Clear Calc 86.1 Estimated GFR > 60 Random Glucose 182 H (60-115) mg/dL Calcium 9.6 (8.4-10.2) mg/dL Troponin I High Sens < 2.7 (<3.5-17.0) ng/L Independent Interpretation I performed an independent interpretation of an: Plain X-Ray ( Chest:No focal consolidation. Mild central peribronchial thickening may reflect airways disease. ) Radiology Impression Discussion of test interpretation with radiology: I have reviewed the radiologist's reading. Discharge Plan Discharge Clinical Impression: Asthma with exacerbation, Acute hypokalemia, Acute hyperglycemia Patient Disposition: Home, Self-Care Instructions: Bronchospasm (ED) Prescriptions: No Action cholecalciferol (vitamin D3) 25 mcg (1,000 unit) capsule 25 mcg PO DAILY albuterol sulfate [ProAir HFA] 90 mcg/actuation HFA aerosol inhaler 2 puff inhalation QID epinephrine 0.3 mg/0.3 mL auto-injector 0.3 ml IM ONCE PRN (Reason: anaphylaxis) docusate sodium 100 mg capsule 100 mg PO BEDTIME Qty: 90 3RF hydrocortisone [Anusol-HC] 2.5 % cream with perineal applicator 1 appl [place] BID-QID PRN (Reason: hemorrhoids) Qty: 30 3RF Rx Instructions: use as directed polyethylene glycol 3350 [Miralax] 17 gram/dose powder 17 g PO DAILY Qty: 510 2RF Referrals: Tiana Ash MD [Primary Care Provider] - Print Language: Brazilian
[2024-01-18] MEDS: methylPREDNISolone Sod Succ 125 MG/2 ML VIAL IVPUSH (02:20)
[2024-01-18] MEDS: Potassium Chloride Packet 20 MEQ PACKET 40 MEQ PO (02:20)
[2024-01-18] MEDS: Potassium Chloride/H20 10 MEQ/100 ML PIGGYBACK 100 MEQ IV (02:24)
[2024-01-18 05:16] VITALS: BP 94/46; PULSE 99; RESP 16; TEMP 36.8; O2SAT 98
[2024-01-18 06:15] VITALS: BP 94/46; PULSE 99; RESP 16; TEMP 36.8; O2SAT 98
== END 2024-01-18 06:16 | disposition home or self-care (01) ==
PROVIDERS: Emergency Provider Emergency Medicine; PCP Internal Medicine
DX: J45.901 Unspecified asthma with (acute) exacerbation (principal); R06.02 Shortness of breath; I44.0 Atrioventricular block, first degree; E87.6 Hypokalemia; Z79.899 Other long term (current) drug therapy
CPT/HCPCS: 36415; 71045; 80048; 84484; 85025; 93005; 96365; 96366; 96375; 99284; 99285; J2919; J3480

== ENCOUNTER → 2024-01-17 23:19 | Outpatient (BNV) | payer OTHER, SELFPAY | PROVIDERS: Emergency Provider Emergency Medicine; PCP Internal Medicine; Visit Provider Internal Medicine | DX: I44.0 Atrioventricular block, first degree (principal) | CPT/HCPCS: 93010 ==

== ENCOUNTER 2024-02-01 12:58 | Outpatient (REF) | payer OTHER, SELFPAY ==
[2024-02-01 16:19] LABS: Hematocrit 36.3 % (37.0-47.0); Hemoglobin 12.3 g/dl (12.0-16.0); Mean Corpuscular HGB Conc 33.9 g/dl (31.0-35.0); Mean Corpuscular Hemoglobin 31.6 pg (27.0-33.0); Mean Corpuscular Volume 93.3 fL (80.0-98.0); Mean Platelet Volume 9.5 fL (9.4-12.3); Platelet Count 293 X10*3/uL (160-400); Red Blood Count 3.89 X10*6/uL (4.20-5.50); Red Cell Distribution Width 11.9 % (11.0-16.0); White Blood Count 8.2 X10*3/uL (4.8-10.8)
[2024-02-01 16:44] LABS: Alanine Aminotransferase 12 U/L (0-31); Albumin Level 4.4 g/dL (3.5-5.0); Alkaline Phosphatase 42 U/L (39-117); Anion Gap 13 (12-20); Aspartate Amino Transferase 18 U/L (5-31); Bilirubin Direct 0.2 mg/dL (0.0-0.5); Bilirubin Total 0.4 mg/dL (0.0-1.0); Blood Urea Nitrogen 9 mg/dL (9-16); Calcium 9.8 mg/dL (8.4-10.2); Carbon Dioxide 24 mmol/L (22-29); Chloride 103 mmol/L (96-108); Cholesterol 203 mg/dL (<200); Estimated Glomerular Filt Rate > 60; Glucose Random 78 mg/dL (60-115); HDL Cholesterol 64 mg/dL (>40); LDL Cholesterol Calculated 129 mg/dL (<100); Sodium 136 mmol/L (135-145); Total Protein 8.1 g/dL (6.5-8.0); Triglycerides 54 mg/dL (<150)
[2024-02-01 16:48] LABS: Estimated Average Glucose 108 mg/dL; Hemoglobin A1c % 5.4 % (<6.0)
[2024-02-01 16:59] LABS: Free T4 (Free Thyroxine) 0.96 ng/dL (0.71-1.85); Thyroid Stimulating Hormone 1.87 uIU/mL (0.32-4.0); Vitamin D 25-OH Total 35.4 ng/mL (>30)
== END 2024-02-01 12:59 | disposition home or self-care (01) ==
LOC: HO.HHCL 12:58
PROVIDERS: Visit Provider Family Medicine
DX: R73.9 Hyperglycemia, unspecified (principal); E87.6 Hypokalemia
CPT/HCPCS: 36415; 80048; 80061; 80076; 82306; 83036; 84439; 84443; 85027

== ENCOUNTER 2024-04-15 14:18 | Outpatient (REF) | payer OTHER, SELFPAY ==
[2024-04-15 17:15] LABS: Rheumatoid Factor < 13.0 IU/mL (<15.0)
[2024-04-15 17:20] LABS: C Reactive Protein 0.28 mg/dL (< or = 0.50)
[2024-04-15 17:41] LABS: Insulin 44 uU/mL (2-29); TSH reflex Free T4 2.28 uIU/mL (0.32-4.0)
[2024-04-15 17:44] LABS: Erythrocyte Sedimentation Rate 17 MM/HR (0-20)
[2024-04-16 04:56] LABS: HBS Num1 237.04 mIU/mL (0-7.99); HBc Num1 0.12 S/CO (0.00-0.79); HBsAGNum1 0.32 S/CO (0.00-0.99); HIV AB/AG Nonreactive (Nonreactive); HIV Num 1 0.06 S/CO (0.00-0.99); Hepatitis A Antibody IgM 0.21 Index (0-0.79); Hepatitis B Core Antibody Nonreactive (Nonreactive); Hepatitis B Surface Antigen Negative (Negative); ~HepC Num1 0.12 S/CO (0.00-0.79); ~Hepatitis A Antibody IgM Nonreactive (Nonreactive); ~Hepatitis B Surface Antibody REACTIVE (Nonreactive); ~Hepatitis C Antibody Nonreactive (Nonreactive)
[2024-04-18 07:23] LABS: TS Negative Control Passed; TS Panel A 0; TS Panel B 0; TS Positive Control Passed; TSpotTB Negative (Negative)
[2024-04-20 07:59] LABS: Anti Nuclear Antibody Screen NEGATIVE (NEGATIVE)
== END 2024-04-15 14:19 | disposition home or self-care (01) ==
LOC: HO.HHCL 14:18
PROVIDERS: Visit Provider Internal Medicine
DX: R63.4 Abnormal weight loss (principal); R25.1 Tremor, unspecified; Z11.1 Encounter for screening for respiratory tuberculosis
CPT/HCPCS: 36415; 83525; 84443; 85652; 86038; 86140; 86431; 86481; 86704; 86706; 86709; 86803; 87340; 87389

== ENCOUNTER 2024-04-17 14:28 | Outpatient (REF) | payer OTHER, SELFPAY ==
[2024-04-20 09:48] LABS: TS Negative Control Passed; TS Panel A 0; TS Panel B 1; TS Positive Control Passed; TSpotTB Negative (Negative)
[2024-04-21 12:18] LABS: Anti Nuclear Antibody Screen NEGATIVE (NEGATIVE)
== END 2024-04-17 14:29 | disposition home or self-care (01) ==
LOC: HO.LAB 14:28
PROVIDERS: PCP Internal Medicine; Visit Provider Internal Medicine
DX: Z11.1 Encounter for screening for respiratory tuberculosis (principal); R63.4 Abnormal weight loss
CPT/HCPCS: 36415; 86038; 86481

== ENCOUNTER 2024-05-24 09:30 | Emergency (ER) | payer OTHER, SELFPAY ==
--- NOTE | 2024-05-24 | ECG_ITS ---
Test Reason : CHEST PAIN Blood Pressure : / mmHG Vent. Rate : 095 BPM Atrial Rate : 095 BPM P-R Int : 204 ms QRS Dur : 082 ms QT Int : 314 ms P-R-T Axes : 059 096 047 degrees QTc Int : 394 ms Normal sinus rhythm Rightward axis Borderline ECG When compared with ECG of 17-JAN-2024 23:22, [place] interval has decreased T wave amplitude has increased in Anterolateral leads Referred By: Generic ED Physician Electronically Signed By:CHALO CONTRERAS
--- NOTE | ~2024-05-24 | XR_ITS ---
EXAMINATION: XR CHEST CLINICAL INFORMATION: Cough COMPARISON: Prior chest January 2023 TECHNIQUE: 2 views of the chest were obtained. FINDINGS: There is a focal ill-defined opacity in the right middle lobe. Lungs otherwise clear. Cardiomediastinal silhouette is normal. Bone and soft tissues normal. XR/XR chest 2V IMPRESSION: Focal opacity in the right middle lobe suspicious for pneumonia. Follow-up recommended to ensure resolution. Electronically signed by: Haseeb Robledo MD 05/24/2024 10:36 AM EDT
[2024-05-24 09:39] VITALS: BP 117/70; PULSE 113; RESP 18; TEMP 36.8; O2SAT 96; BMI 21.3
--- NOTE | 2024-05-24 09:45 | ED_ITS ---
HPI - URI/Sore Throat General Chief Complaint: Upper Respiratory Symptoms Stated Complaint: fever, sob Time Seen by Provider: 05/24/24 09:44 Source: patient, RN notes reviewed and old records reviewed Mode of arrival: ambulatory History of Present Illness ED Provider: Cheryle Rushing PA-C HPI Narrative: 24-year-old female with a past medical history of asthma presenting to the ED complaining of fever T-max 102.5 degrees, chills, sweats, myalgias, dry cough, chest discomfort when coughing, SOB, nausea, nonbloody diarrhea x1 week. Admits to traveling to [place] last weekend. Denies known sick contacts, abdominal pain, vomiting, dysuria/hematuria. Admits to taking Tylenol cold and flu at 05:00 Related Data Home Medications ?Medication ?Instructions ?Recorded ?Confirmed cholecalciferol (vitamin D3) 25 25 mcg PO DAILY 09/15/20 09/15/20 mcg (1,000 unit) capsule albuterol sulfate 90 mcg/actuation 2 puff inhalation QID 05/19/22 aerosol inhaler (ProAir HFA) epinephrine 0.3 mg/0.3 mL 0.3 ml IM ONCE PRN anaphylaxis 05/19/22 injection, auto-injector Previous Rx's ?Medication ?Instructions ?Recorded docusate sodium 100 mg capsule 100 mg PO BEDTIME #90 caps 05/19/22 hydrocortisone 2.5 % topical cream 1 appl [place] BID-QID PRN hemorrhoids 05/19/22 with perineal applicator #30 grams (Anusol-HC) polyethylene glycol 3350 17 17 g PO DAILY #510 grams 10/31/22 gram/dose oral powder (Miralax) Allergies Allergy/AdvReac Type Severity Reaction Status Date / Time No Known Drug Allergies Allergy Unknown Unknown Verified 05/24/24 09:42 FRUIT Allergy Unknown ANGIOEDEMA Uncoded 01/17/24 23:18 Review of Systems 2 Review of Systems: Yes all other systems are reviewed and are negative Constitutional: Constitutional: Reports as per [facility] Past Medical History Attestation statement: The following information was validated with the patient. Source: old records reviewed Surgical History No pertinent past surgical history Family History Family History Father No problems noted. Mother No problems noted. Social History Social History Alcohol intake: never Smoked in Last 30 Days: No Use of substances other than those prescribed or required for medical reasons: No Advance Directives: No Advance Directives Information Provided: No Patient : No Physical Exam 2 Vital Signs: Vital Signs: Last Vital Signs Temp 98.8 F 05/24/24 14:51 Pulse 85 05/24/24 14:51 Resp 18 05/24/24 14:51 BP 100/63 05/24/24 14:51 Pulse Ox 95 05/24/24 14:51 O2 Del Method Room Air 05/24/24 14:51 BMI result Body Mass Index 21.3 Const: General: cooperative, healthy appearing and no acute distress O rientation/consciousness: patient oriented x3 Limitations: no limitations HEENT: Head: Yes normal to inspection and Yes atraumatic Ears: hearing grossly normal bilaterally, external ears normal and mastoids normal General nose exam: Normal external nose present Face and sinus: Yes normal facial exam Mouth: Normal oral and palatal mucosa present and no drooling Throat: Yes posterior oropharynx normal, Yes tonsils normal and Yes uvula midline Eyes: General: appearance normal, both eyes and all related structures EOM: EOMs intact bilaterally Neck: Neck: Yes normal visual inspection and Yes no meningeal signs Resp: Effort & Inspection: normal respiratory effort, no respiratory distress and no stridor Auscultation: clear to auscultation bilaterally, no rales, no rhonchi and no wheezes Cardio: Rate: regular rate Heart sounds: S1 normal heart sound present and S2 normal heart sound present GI: Inspection: Yes normal to inspection Palpation (GI): Soft to palpation, nontender, no guarding and not rigid Skin: Rashes: no rashes Wounds: no wounds Neuro: General: patient oriented x3, tone normal and no meningeal signs C ranial nerves: Yes CN's II-XII intact bilaterally Gait exam (Neuro): Normal gait present Extrem: General: Yes normal to inspection Course Course Course Narrative: -1205--no leukocytosis. Labs otherwise reassuring -COVID/flu/RSV negative XR chest 2V IMPRESSION: Focal opacity in the right middle lobe suspicious for pneumonia. Follow-up recommended to ensure resolution. Electronically signed by: Haseeb Robledo MD 05/24/2024 10:36 AM EDT RP > will obtain lactic/blood cultures. Still low suspicion for severe sepsis. Will give IV Rocephin and p.o. & Azithromycin in the ED >> fever resolved in the ED. Reports symptomatic improvement Results discussed with patient including worrisome signs and symptoms and strict return precautions, and when to return to the emergency department. They verbalized understanding and feel safe for discharge at this time. Medications Administered Discontinued Medications Generic Name Dose Route Start Last Admin Trade Name Magdyq PRN Reason Stop Dose Admin Acetaminophen 650 mg 05/24/24 12:21 05/24/24 12:55 Acetaminophen 325 Mg Tablet PO 05/24/24 12:22 650 mg ONCE ONE Administration Azithromycin 500 mg 05/24/24 12:06 05/24/24 12:55 Azithromycin 500 Mg Tablet PO 05/24/24 12:07 500 mg ONCE ONE Administration Sodium Chloride 1,000 mls @ 999 mls/hr 05/24/24 10:00 05/24/24 12:56 Ns IV 05/24/24 11:00 Infused .Q1H1M CHIKIS Infusion Ceftriaxone Sodium 1 gm/ 50 mls @ 100 mls/hr 05/24/24 12:04 05/24/24 13:45 Sodium Chloride IV 05/24/24 12:33 Infused ONCE ONE Infusion Ketorolac Tromethamine 15 mg 05/24/24 13:26 05/24/24 13:43 Ketorolac Tromethamine 15 Mg/Ml Vial IVPUSH 05/24/24 13:27 15 mg ONCE ONE Administration Medical Decision Making Medical Decision Making MDM Narrative: 24-year-old female with a past medical history of asthma presenting to the ED complaining of fever T-max 102.5 degrees, chills, sweats, myalgias, dry cough, chest discomfort when coughing, SOB, nausea, nonbloody diarrhea x1 week. On exam tachycardic, NAD, nontoxic appearing, lungs CTA, oropharynx WNL. Concern for viral illness vs pneumonia vs bronchitis vs strep pharyngitis. Lower suspicion for ACS/PE or intra-abdominal pathology. Low suspicion for severe sepsis Plan: EKG, labs, viral testing, CXR, IVF, re-evaluate Please refer to course for remaining clinical decision making, interpretation of labs/imaging results, and discussions with consultants and/or family members. Differential Diagnosis Differential Diagnoses: The differential diagnosis associated with the presentation includes As above Admission/Observation Consideration of admission/observation: Escalation of care including admission/observation considered Lab Data MDM Lab Attestation statement: I reviewed the patient's lab results. 05/24/24 10:17 05/24/24 10:17 Labs: Lab Results 05/24/24 05/24/24 Range/Units 10:17 12:29 WBC 6.3 (4.8-10.8) X10*3/uL RBC 3.93 L (4.20-5.50) X10*6/uL Hgb 12.3 (12.0-16.0) g/dl Hct 36.0 L (37.0-47.0) % MCV 91.6 (80.0-98.0) fL MCH 31.3 (27.0-33.0) pg MCHC 34.2 (31.0-35.0) g/dl RDW 11.9 (11.0-16.0) % Plt Count 201 D (160-400) X10*3/uL MPV 8.9 L (9.4-12.3) fL Immature Gran % (Auto) 0.3 (0.0-0.4) % Neut % (Auto) 80.2 H (45-73) % Lymph % (Auto) 13.8 L (20-40) % [place] % (Auto) 4.8 (2-11) % Eos % (Auto) 0.6 (0-4) % Baso % (Auto) 0.3 (0-2) % Lymph # (Auto) 0.9 L (1.2-4.9) X10*3/uL [place] # (Auto) 0.3 (0.1-1.2) X10*3/uL Eos # (Auto) 0.0 (0.0-0.4) X10*3/uL Baso # (Auto) 0.0 (0.0-0.2) X10*3/uL Abs Immat Gran (auto) 0.02 (0.00-0.03) X10*3/uL Absolute Neuts (auto) 5.0 (2.0-8.3) x10*3/uL Absolute Nucleated RBC 0.000 (0.0-0.012) X10*3/uL Nucleated RBC % (auto) 0.0 (0.0-0.2) /100WBC Sodium 139 (135-145) mmol/L Potassium 4.1 (3.3-5.1) mmol/L Chloride 106 (96-108) mmol/L Carbon Dioxide 24 (22-29) mmol/L Anion Gap 13 (12-20) BUN 7 L (9-16) mg/dL Creatinine 0.83 (0.5-1.4) mg/dL Estim Creat Clear Calc 78.1 Estimated GFR > 60 Random Glucose 121 H (60-115) mg/dL Lactic Acid 0.8 (0.5-2.0) mmol/L Calcium 9.3 (8.4-10.2) mg/dL Beta HCG, Quant < 2 mIU/mL Urine Color Dark Yellow Urine Appearance Clear Urine pH 6.5 (5.0-9.0) Ur Specific [place] >= 1.030 H (1.005-1.025) Urine Protein 100 (2+) H (Neg-Trace) mg/dL Urine Glucose (UA) Negative (Negative) mg/dL Urine Ketones Trace (Negative) mg/dL Urine Blood Negative (Negative) Urine Nitrite Negative (Negative) Ur Leukocyte Esterase Trace H (Negative) Urine RBC 0-2 (0-2) /HPF Urine WBC 0-5 (0-5) /HPF Ur Squamous Epith Cells 0-2 (0-2) /HPF Urine Bacteria None Seen (None Seen) Hyaline Casts 0-2 (0-2) /LPF Urine Test NEGATIVE (NEGATIVE) Influenza Type A (PCR) NEGATIVE (Negative) Influenza Type B (PCR) NEGATIVE (Negative) RSV RNA Qual (PCR) NEGATIVE (Negative) SARS-CoV-2 RNA (RT-PCR) NEGATIVE (Negative) Independent Interpretation I performed an independent interpretation of an: EKG and Plain X-Ray Radiology Impression Discussion of test interpretation with radiology: I have reviewed the radiologist's reading. Independent Historian Clinical information obtained from an independent historian. History obtained from or confirmed by: Parent External Record Review External record reviewed: Inpatient record, Office record, Outpatient record, Prior outpatient labs, Prior outpatient radiology, Primary care record and Outside ED record Tests considered The following testing was considered but not selected: As above Prescription Management I considered prescription management with: Pain Medication Chronic Conditions Patient?s care impacted by: Other (Asthma) Discharge Plan Discharge Clinical Impression: Pneumonia Patient Disposition: Home, Self-Care Prescriptions: No Action cholecalciferol (vitamin D3) 25 mcg (1,000 unit) capsule 25 mcg PO DAILY albuterol sulfate [ProAir HFA] 90 mcg/actuation HFA aerosol inhaler 2 puff inhalation QID epinephrine 0.3 mg/0.3 mL auto-injector 0.3 ml IM ONCE PRN (Reason: anaphylaxis) docusate sodium 100 mg capsule 100 mg PO BEDTIME Qty: 90 3RF hydrocortisone [Anusol-HC] 2.5 % cream with perineal applicator 1 appl DE BID-QID PRN (Reason: hemorrhoids) Qty: 30 3RF Rx Instructions: use as directed polyethylene glycol 3350 [Miralax] 17 gram/dose powder 17 g PO DAILY Qty: 510 2RF Print Language: Estonian
[2024-05-24 10:05] VITALS: RESP 22
[2024-05-24 10:10] VITALS: BP 106/66; PULSE 97; RESP 22; TEMP 37.3; O2SAT 98
[2024-05-24 10:21] LABS: MANUAL DIFF FLAG NO
[2024-05-24] MEDS: 0.9 % Sodium Chloride 1,000 ML 999 ML IV (10:22)
[2024-05-24 10:24] LABS: Basophils Percent Auto 0.3 % (0-2); Eosinophils Percent Auto 0.6 % (0-4); Hemoglobin 12.3 g/dl (12.0-16.0); Imm Gran Abs Auto 0.02 X10*3/uL (0.00-0.03); Imm Gran Pct Auto 0.3 % (0.0-0.4); Lymphocytes Absolute Auto 0.9 X10*3/uL (1.2-4.9); Lymphocytes Percent Auto 13.8 % (20-40); Mean Corpuscular HGB Conc 34.2 g/dl (31.0-35.0); Mean Corpuscular Hemoglobin 31.3 pg (27.0-33.0); Mean Corpuscular Volume 91.6 fL (80.0-98.0); Mean Platelet Volume 8.9 fL (9.4-12.3); Monocytes Absolute Auto 0.3 X10*3/uL (0.1-1.2); Monocytes Percent Auto 4.8 % (2-11); Neutrophils Percent Auto 80.2 % (45-73); Platelet Count 201 X10*3/uL (160-400); Red Blood Count 3.93 X10*6/uL (4.20-5.50); Red Cell Distribution Width 11.9 % (11.0-16.0); White Blood Count 6.3 X10*3/uL (4.8-10.8)
--- NOTE | 2024-05-24 10:26 | PC.NURSE ---
Pt comes to ED today with c/o non-productive cough x7 days. Pt reports also experiencing intermittent BOWERS, nausea, fever, and chills. VSS, A&Ox3, and low grade fever. 20g LAC and IVF running. Awaiting blood lab and nasal swab results.
[2024-05-24 10:41] LABS: Anion Gap 13 (12-20); Blood Urea Nitrogen 7 mg/dL (9-16); Calcium 9.3 mg/dL (8.4-10.2); Carbon Dioxide 24 mmol/L (22-29); Chloride 106 mmol/L (96-108); Creatinine Clr Calc Pharmacy 78.1; Estimated Glomerular Filt Rate > 60; Glucose Random 121 mg/dL (60-115); Potassium 4.1 mmol/L (3.3-5.1); Sodium 139 mmol/L (135-145)
[2024-05-24 11:40] LABS: Influenza A PCR NEGATIVE (Negative); Influenza B PCR NEGATIVE (Negative); Resp Syncy Virus RNA Qual PCR NEGATIVE (Negative); SARS COV2 PCR INHOUSE NEGATIVE (Negative)
[2024-05-24 12:12] VITALS: BP 105/63; PULSE 100; RESP 23; TEMP 39.3; O2SAT 96
[2024-05-24 12:50] LABS: Lactic Acid 0.8 mmol/L (0.5-2.0)
[2024-05-24 12:52] LABS: Appearance Urine Clear; Color Urine Dark Yellow; Glucose Urine UA Negative (Negative); Leukocyte Esterase Urine Trace (Negative); Nitrite Urine Negative (Negative); PH 6.5 (5.0-9.0); Specific Gravity - Urine >= 1.030 (1.005-1.025); UMIC TRIGGER UACC YES; Urine Blood Negative (Negative); Urine Ketones Trace mg/dL (Negative); Urine Protein 100 (2+) mg/dL (Neg-Trace)
[2024-05-24 12:53] LABS: UPreg QC Valid YES; Urine Pregnancy NEGATIVE (NEGATIVE)
[2024-05-24] MEDS: cefTRIAXone sodium 1 GM in 0.9 % Sodium Chloride 50 ML IV (12:54)
[2024-05-24] MEDS: Azithromycin 500 MG TABLET PO (12:55)
[2024-05-24] MEDS: Acetaminophen 325 MG TABLET 650 MG PO (12:55)
[2024-05-24 12:57] LABS: HCG Quantitative < 2 mIU/mL
[2024-05-24 12:57] LABS: Bacteria Urine None Seen (None Seen); Hyaline Casts Urine 0-2 /LPF (0-2); RBC Urine 0-2 /HPF (0-2); Squamous Epithelial Cell Urine 0-2 /HPF (0-2); WBC Urine 0-5 /HPF (0-5)
[2024-05-24] MEDS: Ketorolac Tromethamine 15 MG/ML VIAL IVPUSH (13:43)
[2024-05-24 14:51] VITALS: BP 100/63; PULSE 85; RESP 18; TEMP 37.1; O2SAT 95
[2024-05-24 15:19] VITALS: BP 100/63; PULSE 85; RESP 18; TEMP 37.1; O2SAT 95
== END 2024-05-24 15:41 | disposition home or self-care (01) ==
PROVIDERS: Physician Assistant; Emergency Provider Emergency Medicine Emergency Medical Services; PCP Internal Medicine
DX: J18.9 Pneumonia, unspecified organism (principal); Z03.818 Encounter for observation for suspected exposure to other biological agents ruled out; R05.9 Cough, unspecified; R06.02 Shortness of breath; Z79.899 Other long term (current) drug therapy
CPT/HCPCS: 0241U; 36415; 71046; 80048; 81001; 81025; 83605; 84702; 85025; 87040; 93005; 96361; 96365; 96375; 99284; 99285; J0696; J1885

== ENCOUNTER 2024-05-27 22:12 | Emergency (ER) | payer OTHER, SELFPAY ==
[2024-05-27 22:13] VITALS: BP 131/69; PULSE 109; RESP 18; TEMP 36.9; O2SAT 92; BMI 21.0
--- NOTE | 2024-05-27 23:40 | PC.NURSE ---
Pt no answer when called for reassessment, did not notify staff they were leaving.
== END 2024-05-27 23:57 | disposition left against medical advice (07) ==
LOC: HO.ED 23:57
PROVIDERS: Emergency Provider Emergency Medicine; PCP Internal Medicine
DX: R09.02 Hypoxemia (principal); J18.9 Pneumonia, unspecified organism; Z53.21 Procedure and treatment not carried out due to patient leaving prior to being seen by health care provider
CPT/HCPCS: 99281